=== PATIENT | male | born 1955 | race Caucasian/White ===

== ENCOUNTER → 2021-04-14 | Outpatient (CLI) | payer MEDICARE ==
[~2021-04-14] MED LIST: ALTA1CAP2 PO; ASPI-255 PO; ASPI-527 PO; ASPI81CH49 PO; FARX1TAB3 PO; FENO160T10 PO; FISH1000 PO; FLUO20CA20 PO; GABA-282 PO; GEMF600T5 PO; INVO300T PO; METF850T4 PO; METO-346 PO; METO1TAB32 PO; NITR4TASL SL; NOVOINJ13 SC; OMEP1CAP73 PO; PERC5TAB12 PO; PRAV1TAB39 PO; TOUJ1.2I SC; TYLE325T5 PO; VICT18IN SC
== END ==
LOC: M LABSMTC 09:54
PROVIDERS: ATTEND Anesthesiology
DX: Z01.812 Encounter for preprocedural laboratory examination (principal); Z20.822 Contact with and (suspected) exposure to COVID-19

== ENCOUNTER 2021-04-19 06:39 | Day surgery (SDC) | payer MEDICARE ==
[~2021-04-19] VITALS: Ht 175.3 cm; Wt 97.1 kg
[2021-04-19] MEDS ORDERED: LIDOCAINE 2% 100MG/5ML SDV (FOR ANES.) As Ordered ONE (07:04)
[2021-04-19] MEDS ORDERED: propofoL 200 MG/20 ML VIAL As Ordered ONE (07:04)
[2021-04-19] MEDS ORDERED: NS 1,000 ML IV ONE (07:30)
--- NOTE | 2021-04-19 09:16 | ROOR ---
Patient Name: Tai Hartman Procedure Date: 04/19/2021 8:57 AM Date of : 1955 Age: 65 Room: [facility] Gender: Male Note Status: Finalized Procedure: Colonoscopy Indications: High risk colon cancer surveillance: Personal history of colonic polyps Providers: Cruz Ambrose MD Referring MD: BETINA MORENO MD Requesting Provider: Medicines: Monitored Anesthesia Care Complications: No immediate complications. Procedure: Pre-Anesthesia Assessment: - The heart rate, respiratory rate, oxygen saturations, blood pressure, adequacy of pulmonary ventilation, and response to care were monitored throughout the procedure. The Colonoscope was introduced through the anus and advanced to the terminal ileum, with identification of the appendiceal orifice and IC valve. The colonoscopy was performed without difficulty. The patient tolerated the procedure well. The quality of the bowel preparation was poor. Findings: The perianal and digital rectal examinations were normal. Four sessile polyps were found in the sigmoid colon and descending colon. The polyps were 4 to 6 mm in size. These polyps were removed with a cold snare. Resection and retrieval were complete. The exam was otherwise without abnormality. Impression: - Preparation of the colon was poor. - Four 4 to 6 mm polyps in the sigmoid colon and in the descending colon, removed with a cold snare. Resected and retrieved. - The examination was otherwise normal. Recommendation: - Repeat colonoscopy in 1 year because the bowel preparation was poor. Procedure Code(s): --- Professional --- 42339, Colonoscopy, flexible; with removal of tumor(s), polyp(s), or other lesion(s) by snare technique Diagnosis Code(s): --- Professional --- Z86.010, Personal history of colonic polyps K63.5, Polyp of colon CPT copyright 2019 [employer]. All rights reserved. The codes documented in this report are preliminary and upon reports developer review may be revised to meet current compliance requirements. Cruz Ambrose MD Cruz Ambrose MD 04/19/2021 9:15:37 AM Electronically signed by Cruz Ambrose MD Number of Addenda: 0 Note Initiated On: 04/19/2021 8:57 AM Estimated Blood Loss: Estimated blood loss: none.
[2021-04-19 09:35] VITALS: BP 146/68
== END 2021-04-19 09:45 | disposition home or self-care (01) ==
LOC: M OPP 06:39
PROVIDERS: ATTEND Internal Medicine Gastroenterology
DX: Z12.11 Encounter for screening for malignant neoplasm of colon (principal); Z86.010 Personal history of colon polyps; Z80.0 Family history of malignant neoplasm of digestive organs; K63.5 Polyp of colon; Z79.4 Long term (current) use of insulin; Z79.82 Long term (current) use of aspirin; Z79.899 Other long term (current) drug therapy; Z87.891 Personal history of nicotine dependence

== ENCOUNTER → 2021-04-20 | Outpatient (CLI) | payer MEDICARE ==
--- NOTE | 2021-04-20 08:37 | REP ---
INDICATION: SPLENOMAGLY. COMPARISON: None. TECHNIQUE: Real-time sonographic evaluation of the left upper quadrant with Doppler assess spleen FINDINGS: The spleen measures 17.3 x 6.8 x 17.8 cm. The volumetric index calculation is 2094. There is no free fluid. Two small cysts are seen in the spleen. IMPRESSION: Splenomegaly <Electronically signed by David Hidalgo > 04/20/21 0822
== END ==
LOC: M RAD 07:39
PROVIDERS: ATTEND Specialist
DX: R16.1 Splenomegaly, not elsewhere classified (principal)

== ENCOUNTER → 2021-05-13 | Outpatient (CLI) | payer MEDICARE ==
[~2021-05-13] MED LIST changes: +FLUO-96 PO; -FLUO20CA20 PO; +GASTROGRAFIN SOLUTION 30ML (Q9963) As Ordered ONE; +ISOVUE-370 76% 100ML VIAL As Ordered ONE
== END ==
LOC: M RAD 09:06
PROVIDERS: ATTEND Specialist
DX: R91.8 Other nonspecific abnormal finding of lung field (principal); D61.818 Other pancytopenia; R16.1 Splenomegaly, not elsewhere classified; N28.1 Cyst of kidney, acquired
CPT/HCPCS: 71260; 74177; Q9963; Q9967

== ENCOUNTER → 2021-07-19 | Outpatient (CLI) | payer MEDICARE ==
[~2021-07-19] MED LIST changes: -GASTROGRAFIN SOLUTION 30ML (Q9963) As Ordered ONE; -ISOVUE-370 76% 100ML VIAL As Ordered ONE
[2021-07-19 12:59] LABS: HEMATOCRIT 39.8 % (42.0-52.0); HEMOGLOBIN 12.6 g/dl (13.5-17.5); MEAN CORPUSCULAR HEMOGLOBIN 28.6 pg (27.0-33.0); MEAN CORPUSCULAR HGB CONC 31.7 g/dl (32.0-36.5); MEAN CORPUSCULAR VOLUME 90.5 fl (80.0-96.0); PLATELET COUNT, AUTOMATED 97 10^3/uL (150-450); WHITE BLOOD COUNT 2.3 10^3/uL (4.0-10.0)
[2021-07-19 13:09] LABS: INR 1.2; PROTHROMBIN TIME 15.6 SECONDS (12.7-14.5)
[2021-07-19 13:10] LABS: PARTIAL THROMBOPLASTIN TIME 34.1 SECONDS (25.9-37.0)
[2021-07-19 13:43] LABS: ALBUMIN 3.7 GM/DL (3.2-5.2); ALT/SGPT 50 U/L (12-78); BILIRUBIN,DIRECT 0.2 MG/DL (0.0-0.2); BILIRUBIN,TOTAL 0.7 MG/DL (0.2-1.0); IRON (FE) 87 UG/DL (65-175); TOTAL IRON BINDING CAPACITY 457 UG/DL (250-450); TOTAL PROTEIN 7.1 GM/DL (6.4-8.2)
[2021-07-19 13:45] LABS: HEPATITIS B SURFACE ANTIGEN NEGATIVE (NEGATIVE)
[2021-07-19 14:13] LABS: HEPATITIS B CORE ANTIBODY IGM NEGATIVE (NEGATIVE)
[2021-07-19 17:48] LABS: HEPATITIS C VIRUS ABY INDEX 0.2 INDEX (<0.8)
[2021-07-21 16:10] LABS: ANCA-ATYPICAL <1:20 titer (Neg:<1:20); ANTI-MITOCHONDRIAL ANTIBODY <20.0 Units (0.0-20.0); CERULOPLASMIN 19.3 mg/dL (16.0-31.0); CYTOPLASMIC NEUTROP AB ANCA-C <1:20 titer (Neg:<1:20); LIVER-KIDNEY MICROSOMAL ABY <20.1 Units (0.0-20.0); PERINUCLEAR AB ANCA-P <1:20 titer (Neg:<1:20)
== END ==
LOC: M LAB 10:31
PROVIDERS: ATTEND Physician Assistant Medical
DX: R93.3 Abnormal findings on diagnostic imaging of other parts of digestive tract (principal); R94.5 Abnormal results of liver function studies; Z79.899 Other long term (current) drug therapy; Z79.82 Long term (current) use of aspirin; E11.9 Type 2 diabetes mellitus without complications; Z79.4 Long term (current) use of insulin; Z79.84 Long term (current) use of oral hypoglycemic drugs

== ENCOUNTER 2021-08-04 06:21 | Day surgery (SDC) | payer MEDICARE ==
[~2021-08-04] VITALS: Ht 175.3 cm; Wt 97.5 kg
[~2021-08-04 06:21] MED LIST changes: +ECOT81TA5 PO; +FLUO40CA; +GABA600T4; +LANTINJ4 SQ; +METO1TAB87; +MULT-90 PO; +NS 1,000 ML IV ONE; +OMEP-173; +RAMI1CAP22
[2021-08-04] MEDS ORDERED: SIMETHICONE 40MG/0.6ML DROPS 30ML As Ordered ONE (06:39)
[2021-08-04] MEDS ORDERED: propofoL 200 MG/20 ML VIAL As Ordered ONE (07:13)
[2021-08-04] MEDS ORDERED: LIDOCAINE 2% 100MG/5ML SDV (FOR ANES.) As Ordered ONE (07:13)
[2021-08-04 08:46] VITALS: BP 127/61
== END 2021-08-04 08:50 | disposition home or self-care (01) ==
LOC: M OPP 06:21
PROVIDERS: ATTEND Internal Medicine Gastroenterology
DX: K31.7 Polyp of stomach and duodenum (principal); I86.4 Gastric varices; I85.10 Secondary esophageal varices without bleeding; K29.50 Unspecified chronic gastritis without bleeding; K76.6 Portal hypertension; R93.3 Abnormal findings on diagnostic imaging of other parts of digestive tract; I25.83 Coronary atherosclerosis due to lipid rich plaque; E11.9 Type 2 diabetes mellitus without complications; Z79.4 Long term (current) use of insulin; Z79.82 Long term (current) use of aspirin; Z79.899 Other long term (current) drug therapy; Z88.0 Allergy status to penicillin; Z95.5 Presence of coronary angioplasty implant and graft; Z86.74 Personal history of sudden cardiac arrest; Z87.891 Personal history of nicotine dependence

== ENCOUNTER → 2021-08-12 | Outpatient (CLI) | payer MEDICARE ==
[~2021-08-12] MED LIST changes: -NS 1,000 ML IV ONE
== END ==
LOC: M RAD 07:22
PROVIDERS: ATTEND Physician Assistant Medical
DX: R93.3 Abnormal findings on diagnostic imaging of other parts of digestive tract (principal); R94.5 Abnormal results of liver function studies; R16.0 Hepatomegaly, not elsewhere classified

== ENCOUNTER → 2021-11-24 | Outpatient (REF) | payer MEDICARE ==
[2021-11-24 12:19] LABS: APPEARANCE, URINE MANUAL CLEAR (CLEAR)
[2021-11-24 12:20] LABS: BILIRUBIN, URINE MANUAL NEGATIVE (NEGATIVE); BLOOD URINE MANUAL NEGATIVE (NEGATIVE); COLOR, URINE MANUAL YELLOW (YELLOW); GLUCOSE, URINE (UA) MANUAL NEGATIVE (NEGATIVE); KETONE, URINE MANUAL NEGATIVE (NEGATIVE); LEUKOCYTE ESTERASE, URINE MAN NEGATIVE (NEGATIVE); NITRITE, URINE MANUAL NEGATIVE (NEGATIVE); PROTEIN, URINE MANUAL NEGATIVE (NEGATIVE); SPECIFIC GRAVITY,URINE MANUAL 1.005 (1.002-1.035); UROBILINOGEN, URINE MANUAL NORMAL (NORMAL)
[2021-11-24 12:24] LABS: EOS # 0.1 10^3/uL (0.0-0.5); EOS % 1.7 % (0.0-3.0); HEMATOCRIT 42.7 % (42.0-52.0); HEMOGLOBIN 13.8 g/dl (13.5-17.5); LYMPH # 0.8 10^3/uL (1.5-5.0); LYMPH % 26.1 % (24.0-44.0); MEAN CORPUSCULAR HEMOGLOBIN 30.3 pg (27.0-33.0); MEAN CORPUSCULAR HGB CONC 32.3 g/dl (32.0-36.5); MEAN CORPUSCULAR VOLUME 93.8 fl (80.0-96.0); MONO # 0.3 10^3/uL (0.0-0.8); MONO % 9.4 % (2.0-8.0); NEUTROPHILS # 1.8 10^3/uL (1.5-8.5); NEUTROPHILS % 61.1 % (36.0-66.0); RED BLOOD COUNT 4.55 10^6/uL (4.30-6.10)
[2021-11-24 12:36] LABS: PLATELET COUNT, AUTOMATED 75 10^3/uL (150-450)
[2021-11-24 12:53] LABS: CREATININE,RANDOM URINE 70.5 MG/DL; TOTAL PROTEIN,RANDOM URINE 7.8 MG/DL (0.0-12.0)
[2021-11-24 17:41] LABS: COMPLEMENT C3 135 MG/DL (90-180); COMPLEMENT C4 18 MG/DL (10-40)
== END ==
LOC: M SFHCRHEU 09:40
PROVIDERS: ATTEND Internal Medicine
DX: R76.8 Other specified abnormal immunological findings in serum (principal); D61.818 Other pancytopenia

== ENCOUNTER → 2022-01-20 | Outpatient (CLI) | payer MEDICARE ==
[~2022-01-20] MED LIST changes: +ISOVUE-370 76% 100ML VIAL As Ordered ONE
== END ==
LOC: M RAD 10:52
PROVIDERS: ATTEND Specialist
DX: R91.1 Solitary pulmonary nodule (principal)
CPT/HCPCS: 71260; Q9967

== ENCOUNTER → 2022-02-14 | Outpatient (CLI) | payer MEDICARE ==
[~2022-02-14] MED LIST changes: -ISOVUE-370 76% 100ML VIAL As Ordered ONE
== END ==
LOC: M RAD 06:10
PROVIDERS: ATTEND Physician Assistant Medical
DX: K74.60 Unspecified cirrhosis of liver (principal); R16.2 Hepatomegaly with splenomegaly, not elsewhere classified

== ENCOUNTER → 2022-02-20 | Outpatient (CLI) | payer MEDICARE | LOC: M PLARAD 08:22 | PROVIDERS: ATTEND Internal Medicine Medical Oncology | DX: R91.8 Other nonspecific abnormal finding of lung field (principal) | CPT/HCPCS: 78815; A9552 ==

== ENCOUNTER → 2022-04-04 | Outpatient (CLI) | payer MEDICARE | LOC: M WUC 13:22 | PROVIDERS: ATTEND Internal Medicine | DX: D61.818 Other pancytopenia (principal); Z79.899 Other long term (current) drug therapy ==

== ENCOUNTER → 2022-04-04 | Outpatient (CLI) | payer MEDICARE ==
[2022-04-04 17:19] LABS: BASO % 0.7 % (0.0-1.0); EOS % 1.4 % (0.0-3.0); HEMATOCRIT 42.3 % (42.0-52.0); HEMOGLOBIN 13.4 g/dl (13.5-17.5); LYMPH # 0.9 10^3/uL (1.5-5.0); MEAN CORPUSCULAR HGB CONC 31.7 g/dl (32.0-36.5); MEAN CORPUSCULAR VOLUME 94.8 fl (80.0-96.0); MONO # 0.2 10^3/uL (0.0-0.8); MONO % 7.5 % (2.0-8.0); NEUTROPHILS # 1.7 10^3/uL (1.5-8.5); RED BLOOD COUNT 4.46 10^6/uL (4.30-6.10); WHITE BLOOD COUNT 2.8 10^3/uL (4.0-10.0)
[2022-04-04 17:20] LABS: PLATELET COUNT, AUTOMATED 84 10^3/uL (150-450)
[2022-04-04 17:30] LABS: ALBUMIN 3.8 G/DL (3.2-5.2); ALKALINE PHOSPHATASE 64 U/L (46-116); ALT/SGPT 30 U/L (7.0-40); AST/SGOT 32 U/L (<34); BLOOD UREA NITROGEN 22 MG/DL (9-23); CALCIUM LEVEL 8.9 MG/DL (8.3-10.6); CARBON DIOXIDE LEVEL 29 MMOL/L (20-31); CHLORIDE LEVEL 105 MMOL/L (98-107); CHOLESTEROL LEVEL 134 MG/DL (<200); CHOLESTEROL RISK RATIO 4.11 (<5); CREATININE FOR GFR 1.03 MG/DL (0.70-1.30); GLOMERULAR FILTRATION RATE > 60.0 (>49); GLUCOSE, FASTING 229 MG/DL (74-106); HDL CHOLESTEROL 32.6 MG/DL (>40); LDL CHOLESTEROL 72.4 MG/DL (<100); NON-HDL-C 101 MG/DL; POTASSIUM SERUM 4.5 MMOL/L (3.5-5.1); SODIUM LEVEL 142 MMOL/L (136-145); TOTAL PROTEIN 6.9 G/DL (5.7-8.2); TRIGLYCERIDES LEVEL 145 MG/DL (<150)
[2022-04-04 17:41] LABS: HEMOGLOBIN A1c 8.2 % (4.0-6.0)
== END ==
LOC: M WUC 13:26
PROVIDERS: ATTEND Internal Medicine
DX: E11.42 Type 2 diabetes mellitus with diabetic polyneuropathy (principal); I10 Essential (primary) hypertension; E78.2 Mixed hyperlipidemia; Z79.899 Other long term (current) drug therapy

== ENCOUNTER → 2022-04-11 | Outpatient (CLI) | payer MEDICARE | LOC: M CARPUL 13:07 | PROVIDERS: ATTEND Internal Medicine Pulmonary Disease | DX: R91.8 Other nonspecific abnormal finding of lung field (principal) ==

== ENCOUNTER → 2022-06-12 | Outpatient (CLI) | payer MEDICARE ==
[~2022-06-12] MED LIST changes: +CHOL125C5 PO; -FLUO40CA; +FLUO40CA PO; -GABA600T4; +GABA600T4 PO; -METO1TAB87; +METO1TAB87 PO; -OMEP-173; +OMEP-173 PO; -RAMI1CAP22; +RAMI1CAP22 PO; +[UNRECOGNIZED DRUG - CODE] PO
== END ==
LOC: M WUC 15:57
PROVIDERS: ATTEND Physician Assistant Medical
DX: K74.60 Unspecified cirrhosis of liver (principal)

== ENCOUNTER → 2022-06-14 | Outpatient (CLI) | payer MEDICARE | LOC: M LABSMTC 10:56 | PROVIDERS: ATTEND Anesthesiology | DX: Z01.812 Encounter for preprocedural laboratory examination (principal); Z20.822 Contact with and (suspected) exposure to COVID-19 ==

== ENCOUNTER → 2022-06-16 | Outpatient (CLI) | payer MEDICARE ==
[~2022-06-16] MED LIST changes: +CARV3.12 PO
== END ==
LOC: M RAD 06:57
PROVIDERS: ATTEND Internal Medicine Pulmonary Disease
DX: R91.8 Other nonspecific abnormal finding of lung field (principal)

== ENCOUNTER 2022-06-19 06:08 | Day surgery (SDC) | payer MEDICARE ==
[~2022-06-19] VITALS: Ht 175.3 cm; Wt 91.2 kg
[~2022-06-19 06:08] MED LIST changes: -CARV3.12 PO; +NS 1,000 ML IV ONE
[2022-06-19] MEDS ORDERED: propofoL 200 MG/20 ML VIAL As Ordered ONE ×2 (06:54→07:46)
[2022-06-19] MEDS ORDERED: LIDOCAINE 2% 100MG/5ML SDV (FOR ANES.) As Ordered ONE (06:55)
[2022-06-19] MEDS ORDERED: CARV3.12 PO (07:12)
[2022-06-19] MEDS ORDERED: fentaNYL 100 MCG/2 ML INJECTION As Ordered ONE (07:16)
[2022-06-19 08:45] VITALS: BP 134/67
== END 2022-06-19 08:49 | disposition home or self-care (01) ==
LOC: M OPP 06:08
PROVIDERS: ATTEND Internal Medicine Gastroenterology
DX: Z12.11 Encounter for screening for malignant neoplasm of colon (principal); Z86.010 Personal history of colon polyps; Z80.0 Family history of malignant neoplasm of digestive organs; K64.8 Other hemorrhoids; D12.0 Benign neoplasm of cecum; D12.2 Benign neoplasm of ascending colon; D12.5 Benign neoplasm of sigmoid colon; D12.4 Benign neoplasm of descending colon; K31.7 Polyp of stomach and duodenum; I86.4 Gastric varices; K74.60 Unspecified cirrhosis of liver; I85.10 Secondary esophageal varices without bleeding; E11.9 Type 2 diabetes mellitus without complications; I25.10 Atherosclerotic heart disease of native coronary artery without angina pectoris; Z79.4 Long term (current) use of insulin; Z79.82 Long term (current) use of aspirin; Z79.891 Long term (current) use of opiate analgesic; Z79.899 Other long term (current) drug therapy; Z95.5 Presence of coronary angioplasty implant and graft; Z87.891 Personal history of nicotine dependence; Z80.7 Family history of other malignant neoplasms of lymphoid, hematopoietic and related tissues
CPT/HCPCS: 43251; 45385; 88305; J3010

== ENCOUNTER 2022-06-22 13:54 | Emergency (ER) | payer MEDICARE ==
[~2022-06-22] VITALS: Ht 175.3 cm; Wt 91.8 kg
[~2022-06-22 13:54] MED LIST changes: +CARV3.12 PO; -NS 1,000 ML IV ONE
[2022-06-22] MEDS ORDERED: SUCR1TAB56 (14:07)
[2022-06-22 16:04] LABS: BASO % 0.8 % (0.0-1.0); EOS # 0.1 10^3/uL (0.0-0.5); EOS % 2.4 % (0.0-3.0); HEMATOCRIT 38.1 % (42.0-52.0); HEMOGLOBIN 12.5 g/dl (13.5-17.5); LYMPH # 1.1 10^3/uL (1.5-5.0); LYMPH % 21.1 % (24.0-44.0); MEAN CORPUSCULAR HEMOGLOBIN 30.6 pg (27.0-33.0); MEAN CORPUSCULAR HGB CONC 32.8 g/dl (32.0-36.5); MEAN CORPUSCULAR VOLUME 93.4 fl (80.0-96.0); MONO # 0.4 10^3/uL (0.0-0.8); MONO % 8.3 % (2.0-8.0); NEUTROPHILS # 3.4 10^3/uL (1.5-8.5); PLATELET COUNT, AUTOMATED 101 10^3/uL (150-450); RED BLOOD COUNT 4.08 10^6/uL (4.30-6.10); WHITE BLOOD COUNT 5.1 10^3/uL (4.0-10.0)
[2022-06-22 16:38] LABS: ALBUMIN 3.6 G/DL (3.2-5.2); BILIRUBIN,TOTAL 0.9 MG/DL (0.3-1.2); CALCIUM LEVEL 9.6 MG/DL (8.3-10.6); CREATININE FOR GFR 1.27 MG/DL (0.70-1.30); POTASSIUM SERUM 4.5 MMOL/L (3.5-5.1); TOTAL PROTEIN 6.7 G/DL (5.7-8.2)
[2022-06-22 16:48] VITALS: BP 118/62
== END 2022-06-22 18:35 | disposition home or self-care (01) ==
LOC: M ED 13:54
DX: K92.1 Melena (principal); I10 Essential (primary) hypertension; I25.2 Old myocardial infarction; E78.5 Hyperlipidemia, unspecified; E11.9 Type 2 diabetes mellitus without complications; Z79.82 Long term (current) use of aspirin; Z79.4 Long term (current) use of insulin; Z79.810 Long term (current) use of selective estrogen receptor modulators (SERMs); Z79.811 Long term (current) use of aromatase inhibitors; Z79.899 Other long term (current) drug therapy

== ENCOUNTER → 2022-06-23 | Outpatient (CLI) | payer MEDICARE ==
[~2022-06-23] MED LIST changes: +SUCR1TAB56
== END ==
LOC: M LABSMTC 08:06
PROVIDERS: ATTEND Anesthesiology
DX: Z01.812 Encounter for preprocedural laboratory examination (principal); Z20.822 Contact with and (suspected) exposure to COVID-19

== ENCOUNTER → 2022-06-23 | Outpatient (CLI) | payer MEDICARE ==
[2022-06-23 10:34] LABS: PLATELET COUNT, AUTOMATED 77 10^3/uL (150-450)
[2022-06-23 10:42] LABS: INR 1.31; PROTHROMBIN TIME 16.5 SECONDS (12.5-14.5)
[2022-06-23 10:43] LABS: PARTIAL THROMBOPLASTIN TIME 31.6 SECONDS (24.8-34.2)
== END ==
LOC: M PLALAB 08:51
DX: Z01.812 Encounter for preprocedural laboratory examination (principal); Z20.822 Contact with and (suspected) exposure to COVID-19; Z79.899 Other long term (current) drug therapy

== ENCOUNTER 2022-06-28 06:02 | Day surgery (SDC) | payer MEDICARE ==
[~2022-06-28] VITALS: Ht 175.3 cm; Wt 91.2 kg
[~2022-06-28 06:02] MED LIST changes: +ALBUTEROL SULFATE 2.5MG/0.5ML INH NEB SOLN INH ONE; +LIDOCAINE PRES-FREE 2% 10ML AMP INH ONE
[2022-06-28] MEDS ORDERED: LR 1,000 ML IV SCH (06:15)
[2022-06-28] MEDS ORDERED: SUGAMMADEX SODIUM 500 MG/5 ML VIAL (BRIDION) As Ordered ONE (07:01)
[2022-06-28] MEDS ORDERED: ONDANSETRON 4MG 2ML VIAL As Ordered ONE (07:01)
[2022-06-28] MEDS ORDERED: ROCURONIUM BROMIDE 50MG/5ML VIAL As Ordered ONE ×2 (07:01→08:25)
[2022-06-28] MEDS ORDERED: LIDOCAINE 2% 100MG/5ML SDV (FOR ANES.) As Ordered ONE (07:01)
[2022-06-28] MEDS ORDERED: propofoL 200 MG/20 ML VIAL As Ordered ONE (07:01)
[2022-06-28] MEDS ORDERED: MIDAZOLAM INJ 2MG/2ML VIAL As Ordered ONE (07:06)
[2022-06-28] MEDS ORDERED: fentaNYL 100 MCG/2 ML INJECTION As Ordered ONE (07:06)
[2022-06-28] MEDS ORDERED: LIDOCAINE PRES-FREE 2% 10ML AMP As Ordered ONE (07:08)
[2022-06-28] MEDS ORDERED: EPINEPHrine 1MG/10ML SYRINGE 1.5IN As Ordered ONE (07:16)
[2022-06-28] MEDS ORDERED: THROMBIN 5,000 UNITS VIAL As Ordered ONE (07:16)
[2022-06-28] MEDS ORDERED: CETACAINE SPRAY 5GM As Ordered ONE (07:16)
[2022-06-28] MEDS ORDERED: ACETAMINOPHEN 1000MG 100ML IV BAG As Ordered ONE (07:55)
[2022-06-28] MEDS ORDERED: ePHEDrine SULFATE 25 MG/5 ML(5MG/ML) SYRINGE As Ordered ONE (08:08)
[2022-06-28] MEDS ORDERED: ONDANSETRON 4MG 2ML VIAL IV PRN (08:55)
[2022-06-28] MEDS ORDERED: oxyCODONE 5MG TAB PO PRN (08:55)
[2022-06-28] MEDS ORDERED: MORPHINE 2 MG/ML 1ML VIAL IV PRN (08:55)
[2022-06-28] MEDS ORDERED: fentaNYL 100 MCG/2 ML INJECTION IV PRN (08:55)
[2022-06-28 10:34] VITALS: BP 151/69
== END 2022-06-28 10:48 | disposition home or self-care (01) ==
LOC: M SDC 06:02
PROVIDERS: ATTEND Internal Medicine Pulmonary Disease
DX: R91.8 Other nonspecific abnormal finding of lung field (principal); E11.40 Type 2 diabetes mellitus with diabetic neuropathy, unspecified; I10 Essential (primary) hypertension; I25.10 Atherosclerotic heart disease of native coronary artery without angina pectoris; Z95.5 Presence of coronary angioplasty implant and graft; K21.9 Gastro-esophageal reflux disease without esophagitis; K74.60 Unspecified cirrhosis of liver; D73.1 Hypersplenism; D61.818 Other pancytopenia; Z87.891 Personal history of nicotine dependence; F41.9 Anxiety disorder, unspecified; Z79.899 Other long term (current) drug therapy; Z79.82 Long term (current) use of aspirin; Z79.84 Long term (current) use of oral hypoglycemic drugs
CPT/HCPCS: 31624; 31627; 31628; 31629; 31654; 71045; 76000; 88108; 88173; 88305; 88313; J0131; J0171; J1100; J2250; J2405; J3010

== ENCOUNTER → 2022-07-12 | Outpatient (CLI) | payer MEDICARE ==
[~2022-07-12] MED LIST changes: -ALBUTEROL SULFATE 2.5MG/0.5ML INH NEB SOLN INH ONE; -LIDOCAINE PRES-FREE 2% 10ML AMP INH ONE
[2022-07-12 14:08] LABS: HEMATOCRIT 35.5 % (42.0-52.0); HEMOGLOBIN 11.3 g/dl (13.5-17.5); MEAN CORPUSCULAR HEMOGLOBIN 29.2 pg (27.0-33.0); MEAN CORPUSCULAR HGB CONC 31.8 g/dl (32.0-36.5); MEAN CORPUSCULAR VOLUME 91.7 fl (80.0-96.0); RED BLOOD COUNT 3.87 10^6/uL (4.30-6.10); WHITE BLOOD COUNT 2.1 10^3/uL (4.0-10.0)
[2022-07-12 14:12] LABS: PLATELET COUNT, AUTOMATED 81 10^3/uL (150-450)
== END ==
LOC: M LAB 13:24
PROVIDERS: ATTEND Physician Assistant Medical
DX: K92.1 Melena (principal); K74.60 Unspecified cirrhosis of liver

== ENCOUNTER → 2022-07-19 | Outpatient (CLI) | payer MEDICARE ==
[~2022-07-19] MED LIST changes: +INSULADS INJ
== END ==
LOC: M ONCR 08:36
PROVIDERS: ATTEND General Practice
DX: C34.11 Malignant neoplasm of upper lobe, right bronchus or lung (principal); K74.60 Unspecified cirrhosis of liver; R16.1 Splenomegaly, not elsewhere classified; E78.2 Mixed hyperlipidemia; E11.9 Type 2 diabetes mellitus without complications; I25.10 Atherosclerotic heart disease of native coronary artery without angina pectoris; I25.2 Old myocardial infarction; Z95.5 Presence of coronary angioplasty implant and graft; Z79.4 Long term (current) use of insulin; Z79.811 Long term (current) use of aromatase inhibitors; Z79.82 Long term (current) use of aspirin; Z79.84 Long term (current) use of oral hypoglycemic drugs; Z79.899 Other long term (current) drug therapy; Z80.9 Family history of malignant neoplasm, unspecified; Z87.891 Personal history of nicotine dependence

== ENCOUNTER → 2022-08-01 | Outpatient (CLI) | payer MEDICARE ==
[2022-08-01 14:38] LABS: BASO % 0.7 % (0.0-1.0); EOS # 0.1 10^3/uL (0.0-0.5); EOS % 3.5 % (0.0-3.0); HEMATOCRIT 35.5 % (42.0-52.0); HEMOGLOBIN 11.4 g/dl (13.5-17.5); LYMPH # 0.5 10^3/uL (1.5-5.0); LYMPH % 34.7 % (24.0-44.0); MEAN CORPUSCULAR HEMOGLOBIN 29.5 pg (27.0-33.0); MEAN CORPUSCULAR HGB CONC 32.1 g/dl (32.0-36.5); MONO # 0.2 10^3/uL (0.0-0.8); MONO % 11.1 % (2.0-8.0); NEUTROPHILS % 48.6 % (36.0-66.0); RED BLOOD COUNT 3.86 10^6/uL (4.30-6.10); WHITE BLOOD COUNT 1.4 10^3/uL (4.0-10.0)
[2022-08-01 15:06] LABS: ALBUMIN 3.7 G/DL (3.2-5.2); ALKALINE PHOSPHATASE 54 U/L (46-116); ALT/SGPT 24 U/L (7.0-40); AST/SGOT 26 U/L (<34); BILIRUBIN,TOTAL 0.6 MG/DL (0.3-1.2); BLOOD UREA NITROGEN 18 MG/DL (9-23); CARBON DIOXIDE LEVEL 28 MMOL/L (20-31); CHLORIDE LEVEL 108 MMOL/L (98-107); CHOLESTEROL LEVEL 128 MG/DL (<200); CHOLESTEROL RISK RATIO 4.06 (<5); CREATININE FOR GFR 0.86 MG/DL (0.70-1.30); GLOMERULAR FILTRATION RATE > 60.0 (>49); GLUCOSE, FASTING 115 MG/DL (74-106); HDL CHOLESTEROL 31.5 MG/DL (>40); LDL CHOLESTEROL 68.5 MG/DL (<100); NON-HDL-C 96.5 MG/DL; POTASSIUM SERUM 3.8 MMOL/L (3.5-5.1); SODIUM LEVEL 143 MMOL/L (136-145); TOTAL PROTEIN 6.7 G/DL (5.7-8.2); TRIGLYCERIDES LEVEL 140 MG/DL (<150)
[2022-08-01 15:23] LABS: NEUTROPHILS # 0.7 10^3/uL (1.5-8.5); PLATELET COUNT, AUTOMATED 75 10^3/uL (150-450)
[2022-08-01 15:40] LABS: HEMOGLOBIN A1c 7.6 % (4.0-6.0)
== END ==
LOC: M WUC 09:27
PROVIDERS: ATTEND Internal Medicine
DX: E11.42 Type 2 diabetes mellitus with diabetic polyneuropathy (principal); E78.2 Mixed hyperlipidemia; I10 Essential (primary) hypertension

== ENCOUNTER → 2022-08-08 | Outpatient (CLI) | payer MEDICARE | LOC: M RAD 06:49 | PROVIDERS: ATTEND Physician Assistant Medical | DX: K74.60 Unspecified cirrhosis of liver (principal); R16.2 Hepatomegaly with splenomegaly, not elsewhere classified; K76.6 Portal hypertension ==

== ENCOUNTER 2022-08-11 13:41 | Outpatient (RCR) | payer MEDICARE | END 2022-08-13 | LOC: M ONCR 13:41 | PROVIDERS: ATTEND General Practice | DX: C34.11 Malignant neoplasm of upper lobe, right bronchus or lung (principal) ==

== ENCOUNTER 2022-08-15 13:42 | Outpatient (RCR) | payer MEDICARE | END 2022-09-13 | LOC: M ONCR 13:42 | PROVIDERS: ATTEND General Practice | DX: C34.11 Malignant neoplasm of upper lobe, right bronchus or lung (principal) ==

== ENCOUNTER → 2022-09-14 | Outpatient (CLI) | payer MEDICARE | LOC: M WUC 10:22 | PROVIDERS: ATTEND Physician Assistant | DX: S20.212A Contusion of left front wall of thorax, initial encounter (principal) ==

== ENCOUNTER → 2022-10-05 | Outpatient (CLI) | payer MEDICARE | LOC: M SOG 09:31 | PROVIDERS: ATTEND Orthopaedic Surgery | DX: M54.50 Low back pain, unspecified (principal); R10.2 Pelvic and perineal pain; M79.605 Pain in left leg ==

== ENCOUNTER 2022-11-07 22:08 | Emergency (ER) | payer MEDICARE ==
[~2022-11-07] VITALS: Ht 172.7 cm; Wt 84.1 kg
[~2022-11-07 22:08] MED LIST changes: +HYDR-3713 PO
[2022-11-08] MEDS ORDERED: MIRA3350 PO (07:29)
[2022-11-08] MEDS ORDERED: PERC5TAB12 PO (07:29)
[2022-11-08] MEDS ORDERED: PERCOCET 5MG/325MG TAB PO ONE (07:30)
[2022-11-08 07:43] VITALS: BP 163/74; TEMP 97; O2SAT 96
== END 2022-11-08 07:50 | disposition home or self-care (01) ==
LOC: M ED 22:08
DX: R10.9 Unspecified abdominal pain (principal); M54.50 Low back pain, unspecified; K21.9 Gastro-esophageal reflux disease without esophagitis; Z86.79 Personal history of other diseases of the circulatory system; Z79.82 Long term (current) use of aspirin; Z79.891 Long term (current) use of opiate analgesic; Z79.899 Other long term (current) drug therapy

== ENCOUNTER → 2022-11-08 | Outpatient (CLI) | payer MEDICARE ==
[~2022-11-08] MED LIST changes: +MIRA3350 PO
[2022-11-08 17:50] LABS: ALBUMIN 3.3 G/DL (3.2-5.2); ALKALINE PHOSPHATASE 100 U/L (46-116); ALT/SGPT 13 U/L (7.0-40); AST/SGOT 19 U/L (<34); BILIRUBIN,TOTAL 1.4 MG/DL (0.3-1.2); BLOOD UREA NITROGEN 18 MG/DL (9-23); CALCIUM LEVEL 9.2 MG/DL (8.3-10.6); CARBON DIOXIDE LEVEL 25 MMOL/L (20-31); CHLORIDE LEVEL 102 MMOL/L (98-107); CHOLESTEROL LEVEL 128 MG/DL (<200); CHOLESTEROL RISK RATIO 4.84 (<5); CREATININE FOR GFR 0.63 MG/DL (0.70-1.30); GLOMERULAR FILTRATION RATE > 60.0 (>49); GLUCOSE, FASTING 174 MG/DL (74-106); HDL CHOLESTEROL 26.4 MG/DL (>40); LDL CHOLESTEROL 70.8 MG/DL (<100); NON-HDL-C 101.6 MG/DL; POTASSIUM SERUM 3.5 MMOL/L (3.5-5.1); SODIUM LEVEL 139 MMOL/L (136-145); TOTAL PROTEIN 6.8 G/DL (5.7-8.2); TRIGLYCERIDES LEVEL 154 MG/DL (<150)
[2022-11-08 19:27] LABS: HEMOGLOBIN A1c 7.5 % (4.0-6.0)
== END ==
LOC: M WUC 14:04
PROVIDERS: ATTEND Internal Medicine
DX: E11.42 Type 2 diabetes mellitus with diabetic polyneuropathy (principal); E78.2 Mixed hyperlipidemia; I10 Essential (primary) hypertension

== ENCOUNTER → 2022-11-15 | Outpatient (CLI) | payer MEDICARE ==
[~2022-11-15] MED LIST changes: +FENT1DIS14 TD; +FENT1DIS14 TOP; +FISH10002 PO; -INSULADS INJ; +INSULADS SC; +MIRA1POW3 PO; +VITMTA PO
== END ==
LOC: M ONCR 13:54
PROVIDERS: ATTEND Radiology Radiation Oncology
DX: C34.11 Malignant neoplasm of upper lobe, right bronchus or lung (principal); J90 Pleural effusion, not elsewhere classified; R18.8 Other ascites; K74.60 Unspecified cirrhosis of liver; R29.6 Repeated falls; Z87.891 Personal history of nicotine dependence; Z71.2 Person consulting for explanation of examination or test findings; Z79.4 Long term (current) use of insulin; Z79.811 Long term (current) use of aromatase inhibitors; Z79.82 Long term (current) use of aspirin; Z79.84 Long term (current) use of oral hypoglycemic drugs; Z79.899 Other long term (current) drug therapy; Z92.3 Personal history of irradiation

== ENCOUNTER → 2022-11-17 | Outpatient (CLI) | payer MEDICARE ==
[2022-11-17 16:33] LABS: PLATELET COUNT, AUTOMATED 178 10^3/uL (150-450)
[2022-11-17 16:48] LABS: INR 1.47; PROTHROMBIN TIME 18.1 SECONDS (12.5-14.5)
[2022-11-17 16:49] LABS: PARTIAL THROMBOPLASTIN TIME 33.1 SECONDS (24.8-34.2)
== END ==
LOC: M WUC 14:46
PROVIDERS: ATTEND Internal Medicine Pulmonary Disease
DX: Z01.812 Encounter for preprocedural laboratory examination (principal); Z79.899 Other long term (current) drug therapy

== ENCOUNTER 2022-11-20 15:22 | Inpatient (IN) | payer MEDICARE ==
[~2022-11-20] VITALS: Ht 175.3 cm; Wt 78.5 kg
[~2022-11-20 15:22] MED LIST changes: -ACET1TAB55 PO; -COLA100C5 PO; -FENT1DIS14 TD; -FISH10002 PO; -MIRA1POW3 PO; -PERCOCET PO; -SENN-188 PO; -VITMTA PO
[2022-11-20] MEDS: MORPHINE 2 MG/ML 1ML VIAL IV PRN ×2 (16:43→17:00)
[2022-11-20 17:07] LABS: BASO % 0.4 % (0.0-1.0); EOS % 0.6 % (0.0-3.0); HEMATOCRIT 34.8 % (42.0-52.0); HEMOGLOBIN 10.9 g/dl (13.5-17.5); LYMPH # 0.8 10^3/uL (1.5-5.0); LYMPH % 16.6 % (24.0-44.0); MEAN CORPUSCULAR HEMOGLOBIN 25.5 pg (27.0-33.0); MEAN CORPUSCULAR HGB CONC 31.3 g/dl (32.0-36.5); MEAN CORPUSCULAR VOLUME 81.3 fl (80.0-96.0); MONO # 0.5 10^3/uL (0.0-0.8); MONO % 10.7 % (2.0-8.0); NEUTROPHILS # 3.4 10^3/uL (1.5-8.5); NEUTROPHILS % 70.9 % (36.0-66.0); PLATELET COUNT, AUTOMATED 155 10^3/uL (150-450); RED BLOOD COUNT 4.28 10^6/uL (4.30-6.10); WHITE BLOOD COUNT 4.8 10^3/uL (4.0-10.0)
[2022-11-20] MEDS ORDERED: MORPHINE 4 MG/ML 1ML VIAL IV ONE (17:20)
[2022-11-20] MEDS ORDERED: FENTANYL REMOVAL DOCUMENTATION MISC XX SCH (17:20)
[2022-11-20] MEDS ORDERED: fentaNYL 25 MCG/HR PATCH TOP ONE (17:20)
[2022-11-20 17:31] LABS: INR 1.47; PROTHROMBIN TIME 18.1 SECONDS (12.5-14.5)
[2022-11-20 17:32] LABS: PARTIAL THROMBOPLASTIN TIME 29.4 SECONDS (24.8-34.2)
[2022-11-20 17:37] LABS: CK-MB VALUE MASS 1.2 NG/ML (<3.6)
[2022-11-20 17:41] LABS: ALBUMIN 2.8 G/DL (3.2-5.2); ALKALINE PHOSPHATASE 137 U/L (46-116); ALT/SGPT 17 U/L (7.0-40); AST/SGOT 23 U/L (<34); BILIRUBIN,DIRECT 0.7 MG/DL (<0.4); BILIRUBIN,TOTAL 1.8 MG/DL (0.3-1.2); BLOOD UREA NITROGEN 21 MG/DL (9-23); CALCIUM LEVEL 9.2 MG/DL (8.3-10.6); CARBON DIOXIDE LEVEL 24 MMOL/L (20-31); CHLORIDE LEVEL 106 MMOL/L (98-107); CPK CREATINE PHOSPHOKINASE 47 U/L (46-171); CREATININE FOR GFR 0.72 MG/DL (0.70-1.30); GLOMERULAR FILTRATION RATE > 60.0 (>49); GLUCOSE, FASTING 124 MG/DL (74-106); MB/CK RELATIVE INDEX 2.55 (< OR =4); POTASSIUM SERUM 3.5 MMOL/L (3.5-5.1); SODIUM LEVEL 141 MMOL/L (136-145); TOTAL PROTEIN 6.2 G/DL (5.7-8.2)
[2022-11-20 17:43] LABS: THYROID STIMULATING HORMONE 2.471 uIU/ML (0.55-4.78)
[2022-11-20 17:52] LABS: RSV AMPLIFICATION NEGATIVE (NEGATIVE)
[2022-11-20 18:44] LABS: CK-MB VALUE MASS < 1.0 NG/ML (<3.6)
[2022-11-20 18:47] LABS: CPK CREATINE PHOSPHOKINASE 45 U/L (46-171); MB/CK RELATIVE INDEX 2.22 (< OR =4)
[2022-11-20] MEDS: HYDROMORPHONE HCL 0.5 MG/ 0.5 ML SYRINGE IV PRN ×2 (20:22→22:37)
[2022-11-20] MEDS ORDERED: ALBUTEROL SULFATE 2.5MG/0.5ML INH NEB SOLN NEB PRN (21:20)
[2022-11-20] MEDS ORDERED: ACETAMINOPHEN TAB 650MG DOSE (2X325MG) PO PRN (21:20)
[2022-11-20] MEDS ORDERED: GLUCOSE 4GM CHEW TABLET PO PRN (21:20)
[2022-11-20] MEDS ORDERED: DEXTROSE 50% 50ML SYRINGE IV PRN (21:20)
[2022-11-20] MEDS ORDERED: GLUCAGON INJ 1MG VIAL SC PRN (21:20)
[2022-11-20] MEDS ORDERED: NS 500 ML IV ONE (21:20)
[2022-11-20] MEDS: NS 1,000 ML IV SCH (21:45)
[2022-11-20] MEDS ORDERED: GABA600T4 PO (23:27)
[2022-11-20] MEDS ORDERED: FLUO40CA PO (23:27)
[2022-11-20] MEDS ORDERED: OMEP-173 PO (23:27)
[2022-11-20] MEDS ORDERED: FENT1DIS14 TD (23:27)
[2022-11-20] MEDS ORDERED: MIRA1POW3 PO (23:27)
[2022-11-20] MEDS ORDERED: VITMTA PO (23:27)
[2022-11-20] MEDS ORDERED: FISH10002 PO (23:27)
[2022-11-20] MEDS ORDERED: RAMI1CAP22 PO (23:27)
[2022-11-20] MEDS ORDERED: HOME MED LIST COMPLETE! XX SCH (23:30)
[2022-11-21] VITALS (8 sets, daily range): BP systolic 124–164; BP diastolic 58–91; TEMP 98.1–99.8; O2SAT 92–95
[2022-11-21] MEDS: HYDROMORPHONE HCL 0.5 MG/ 0.5 ML SYRINGE IV PRN ×3 (03:04→10:42)
[2022-11-21] MEDS: NS 1,000 ML IV SCH ×2 (03:15→17:46)
[2022-11-21 04:43] LABS: HEMATOCRIT 32.1 % (42.0-52.0); HEMOGLOBIN 10.1 g/dl (13.5-17.5)
[2022-11-21] MEDS ORDERED: NS 500 ML IV ONE (04:45)
[2022-11-21 05:04] LABS: BLOOD UREA NITROGEN 21 MG/DL (9-23); CALCIUM LEVEL 8.6 MG/DL (8.3-10.6); CARBON DIOXIDE LEVEL 25 MMOL/L (20-31); CHLORIDE LEVEL 108 MMOL/L (98-107); CREATININE FOR GFR 0.68 MG/DL (0.70-1.30); GLOMERULAR FILTRATION RATE > 60.0 (>49); GLUCOSE, FASTING 140 MG/DL (74-106); POTASSIUM SERUM 3.6 MMOL/L (3.5-5.1); SODIUM LEVEL 143 MMOL/L (136-145)
[2022-11-21] MEDS ORDERED: LACTULOSE 20GM/30ML SYRUP UDC PO PRN (05:05)
[2022-11-21] MEDS: INSULIN LISPRO (NovoLOG) PER UNIT SC SCH ×5 (05:30→21:00)
[2022-11-21] MEDS: rifAXIMin 550 MG TAB (XIFAXAN) PO SCH ×3 (08:01→21:33)
[2022-11-21] MEDS ORDERED: MIDAZOLAM INJ 2MG/2ML VIAL As Ordered ONE (12:38)
[2022-11-21] MEDS ORDERED: fentaNYL 100 MCG/2 ML INJECTION As Ordered ONE ×2 (12:38→14:26)
[2022-11-21] MEDS ORDERED: propofoL 200 MG/20 ML VIAL As Ordered ONE ×2 (12:38→12:40)
[2022-11-21] MEDS ORDERED: LIDOCAINE 2% 100MG/5ML SDV (FOR ANES.) As Ordered ONE (12:38)
[2022-11-21] MEDS ORDERED: SUGAMMADEX SODIUM 500 MG/5 ML VIAL (BRIDION) As Ordered ONE (13:08)
[2022-11-21] MEDS ORDERED: ROCURONIUM BROMIDE 50MG/5ML VIAL As Ordered ONE ×2 (13:08→14:08)
[2022-11-21] MEDS ORDERED: ONDANSETRON 4MG 2ML VIAL As Ordered ONE (13:10)
[2022-11-21] MEDS ORDERED: ceFAZolin 2 GM/D5W 50 ML IV BAG As Ordered ONE (13:26)
[2022-11-21] MEDS ORDERED: TRANEXAMIC ACID 100 MG/ML 10ML VIAL As Ordered ONE (13:34)
[2022-11-21] MEDS ORDERED: HEPARIN SOD (PORCINE) 5000UNITS/ML 1ML VIAL/SYRINGE SC SCH (14:00)
[2022-11-21] MEDS ORDERED: NS 1,000 ML IV SCH (15:05)
[2022-11-21] MEDS ORDERED: METOCLOPRAMIDE INJ 10MG/2ML VIAL IV PRN (15:05)
[2022-11-21] MEDS ORDERED: ONDANSETRON 4MG 2ML VIAL IV PRN (15:05)
[2022-11-21] MEDS ORDERED: HYDROMORPHONE HCL 0.5 MG/ 0.5 ML SYRINGE IV PRN (15:05)
[2022-11-21] MEDS ORDERED: oxyCODONE 5MG TAB PO PRN (15:05)
[2022-11-21] MEDS ORDERED: fentaNYL 100 MCG/2 ML INJECTION IV PRN (15:05)
[2022-11-21] MEDS ORDERED: MIRALAX *UNIT DOSE* 17GM PACKET PO PRN (15:25)
[2022-11-21] MEDS: GABAPENTIN 300 MG CAP PO SCH ×2 (16:00→21:34)
[2022-11-21] MEDS: OMEPRAZOLE 20MG CAP PO SCH (21:33)
[2022-11-21] MEDS: CARVedilol 3.125 MG TAB PO SCH (21:34)
[2022-11-21] MEDS: ceFAZolin SOD 2 GM in IV 1 EA IV SCH (21:35)
[2022-11-22] VITALS (9 sets, daily range): BP systolic 105–133; BP diastolic 53–63; TEMP 98.1–98.5; O2SAT 86–96
[2022-11-22] MEDS: NS 1,000 ML IV SCH (01:06)
[2022-11-22 04:28] LABS: HEMATOCRIT 28.2 % (42.0-52.0); HEMOGLOBIN 8.5 g/dl (13.5-17.5); MEAN CORPUSCULAR HEMOGLOBIN 25.6 pg (27.0-33.0); MEAN CORPUSCULAR HGB CONC 30.1 g/dl (32.0-36.5); MEAN CORPUSCULAR VOLUME 84.9 fl (80.0-96.0); RED BLOOD COUNT 3.32 10^6/uL (4.30-6.10); WHITE BLOOD COUNT 4.7 10^3/uL (4.0-10.0)
[2022-11-22 04:47] LABS: PLATELET COUNT, AUTOMATED 95 10^3/uL (150-450)
[2022-11-22 04:54] LABS: ALBUMIN 2.2 G/DL (3.2-5.2); ALKALINE PHOSPHATASE 142 U/L (46-116); ALT/SGPT 11 U/L (7.0-40); AST/SGOT 25 U/L (<34); BILIRUBIN,TOTAL 0.9 MG/DL (0.3-1.2); BLOOD UREA NITROGEN 20 MG/DL (9-23); CALCIUM LEVEL 8.1 MG/DL (8.3-10.6); CARBON DIOXIDE LEVEL 26 MMOL/L (20-31); CHLORIDE LEVEL 112 MMOL/L (98-107); GLOMERULAR FILTRATION RATE > 60.0 (>49); GLUCOSE, FASTING 157 MG/DL (74-106); SODIUM LEVEL 145 MMOL/L (136-145); TOTAL PROTEIN 5.2 G/DL (5.7-8.2)
[2022-11-22] MEDS: ceFAZolin SOD 2 GM in IV 1 EA IV SCH (05:28)
[2022-11-22] MEDS ORDERED: PERCOCET 5MG/325MG TAB PO PRN (06:50)
[2022-11-22] MEDS: INSULIN LISPRO (NovoLOG) PER UNIT SC SCH ×4 (08:56→21:00)
[2022-11-22] MEDS: FLUoxetine 20MG CAP PO SCH (08:56)
[2022-11-22] MEDS: ramipriL 1.25 MG CAP PO SCH (08:57)
[2022-11-22] MEDS: ASPIRIN 81MG ENTERIC TABLET PO SCH (08:57)
[2022-11-22] MEDS: FENOFIBRATE 145MG TABLET (TRICOR) PO SCH (08:57)
[2022-11-22] MEDS: OMEPRAZOLE 20MG CAP PO SCH ×2 (08:57→21:09)
[2022-11-22] MEDS: rifAXIMin 550 MG TAB (XIFAXAN) PO SCH ×2 (08:57→21:09)
[2022-11-22] MEDS: MULTIVITAMINS/MINERALS THERAP 1 TAB PO SCH (08:57)
[2022-11-22] MEDS: DOCUSATE SODIUM 100MG CAPSULE PO SCH ×2 (08:57→21:10)
[2022-11-22] MEDS: GABAPENTIN 300 MG CAP PO SCH ×3 (08:57→21:08)
[2022-11-22] MEDS: CARVedilol 3.125 MG TAB PO SCH ×2 (08:57→21:09)
[2022-11-22] MEDS ORDERED: ramipriL 5 MG CAP PO SCH (09:00)
[2022-11-22] MEDS: PERCOCET 5MG/325MG TAB PO PRN (09:06)
[2022-11-22] MEDS: LEVEMIR (INSULIN DETEMIR) 1 UNITS/0.01ML SC SCH ×2 (09:55→21:00)
[2022-11-22] MEDS ORDERED: SENNA 8.6 MG TAB (SENOKOT) PO SCH (21:00)
[2022-11-23] VITALS (7 sets, daily range): BP systolic 113–134; BP diastolic 56–62; TEMP 97.7–98.7; O2SAT 86–97
[2022-11-23 06:07] LABS: HEMATOCRIT 28.4 % (42.0-52.0); HEMOGLOBIN 8.5 g/dl (13.5-17.5); MEAN CORPUSCULAR HEMOGLOBIN 25.7 pg (27.0-33.0); MEAN CORPUSCULAR HGB CONC 29.9 g/dl (32.0-36.5); MEAN CORPUSCULAR VOLUME 85.8 fl (80.0-96.0); PLATELET COUNT, AUTOMATED 100 10^3/uL (150-450); RED BLOOD COUNT 3.31 10^6/uL (4.30-6.10); WHITE BLOOD COUNT 3.7 10^3/uL (4.0-10.0)
[2022-11-23 06:39] LABS: ALKALINE PHOSPHATASE 137 U/L (46-116); ALT/SGPT 11 U/L (7.0-40); AST/SGOT 20 U/L (<34); BLOOD UREA NITROGEN 28 MG/DL (9-23); CALCIUM LEVEL 8.3 MG/DL (8.3-10.6); CARBON DIOXIDE LEVEL 28 MMOL/L (20-31); CHLORIDE LEVEL 108 MMOL/L (98-107); CREATININE FOR GFR 0.67 MG/DL (0.70-1.30); GLOMERULAR FILTRATION RATE > 60.0 (>49); GLUCOSE, FASTING 163 MG/DL (74-106); POTASSIUM SERUM 4.2 MMOL/L (3.5-5.1); SODIUM LEVEL 142 MMOL/L (136-145); TOTAL PROTEIN 5.1 G/DL (5.7-8.2)
[2022-11-23] MEDS: INSULIN LISPRO (NovoLOG) PER UNIT SC SCH ×4 (07:30→20:33)
[2022-11-23] MEDS: LEVEMIR (INSULIN DETEMIR) 1 UNITS/0.01ML SC SCH ×2 (08:01→20:32)
[2022-11-23] MEDS: CARVedilol 3.125 MG TAB PO SCH ×2 (09:00→20:31)
[2022-11-23] MEDS: ramipriL 1.25 MG CAP PO SCH (09:00)
[2022-11-23] MEDS: OMEPRAZOLE 20MG CAP PO SCH ×2 (09:46→20:32)
[2022-11-23] MEDS: ASPIRIN 81MG ENTERIC TABLET PO SCH (09:46)
[2022-11-23] MEDS: FLUoxetine 20MG CAP PO SCH (09:47)
[2022-11-23] MEDS: MULTIVITAMINS/MINERALS THERAP 1 TAB PO SCH (09:47)
[2022-11-23] MEDS: GABAPENTIN 300 MG CAP PO SCH ×3 (09:47→20:32)
[2022-11-23] MEDS: FENOFIBRATE 145MG TABLET (TRICOR) PO SCH (09:47)
[2022-11-23] MEDS: rifAXIMin 550 MG TAB (XIFAXAN) PO SCH ×2 (09:47→20:32)
[2022-11-23] MEDS: DOCUSATE SODIUM 100MG CAPSULE PO SCH ×2 (09:47→20:29)
[2022-11-23] MEDS: PERCOCET 5MG/325MG TAB PO PRN ×2 (09:49→15:09)
[2022-11-23] MEDS ORDERED: FENTANYL REMOVAL DOCUMENTATION MISC XX ONE (16:59)
[2022-11-23] MEDS ORDERED: fentaNYL 25 MCG/HR PATCH TD SCH (18:00)
[2022-11-23] MEDS ORDERED: FENTANYL REMOVAL DOCUMENTATION MISC XX SCH (18:00)
[2022-11-23] MEDS: MIRALAX *UNIT DOSE* 17GM PACKET PO SCH (20:29)
[2022-11-23] MEDS: SENNA 8.6 MG TAB (SENOKOT) PO SCH (20:32)
[2022-11-23] MEDS ORDERED: ENOXAPARIN 40MG/0.4ML SYRINGE (J1650 PER 10MG) SC SCH (21:00)
[2022-11-24 05:41] VITALS: BP 134/61; TEMP 97; O2SAT 93
[2022-11-24 06:33] LABS: HEMATOCRIT 29.4 % (42.0-52.0); HEMOGLOBIN 8.9 g/dl (13.5-17.5); MEAN CORPUSCULAR HEMOGLOBIN 25.7 pg (27.0-33.0); MEAN CORPUSCULAR HGB CONC 30.3 g/dl (32.0-36.5); PLATELET COUNT, AUTOMATED 100 10^3/uL (150-450); RED BLOOD COUNT 3.46 10^6/uL (4.30-6.10); WHITE BLOOD COUNT 2.8 10^3/uL (4.0-10.0)
[2022-11-24 06:56] LABS: ALBUMIN 2.1 G/DL (3.2-5.2); ALKALINE PHOSPHATASE 154 U/L (46-116); ALT/SGPT 14 U/L (7.0-40); AST/SGOT 21 U/L (<34); BILIRUBIN,TOTAL 0.9 MG/DL (0.3-1.2); BLOOD UREA NITROGEN 27 MG/DL (9-23); CALCIUM LEVEL 8.3 MG/DL (8.3-10.6); CARBON DIOXIDE LEVEL 29 MMOL/L (20-31); CHLORIDE LEVEL 107 MMOL/L (98-107); CREATININE FOR GFR 0.59 MG/DL (0.70-1.30); GLOMERULAR FILTRATION RATE > 60.0 (>49); GLUCOSE, FASTING 118 MG/DL (74-106); POTASSIUM SERUM 4.2 MMOL/L (3.5-5.1); SODIUM LEVEL 142 MMOL/L (136-145); TOTAL PROTEIN 5.3 G/DL (5.7-8.2)
[2022-11-24] MEDS: FENOFIBRATE 145MG TABLET (TRICOR) PO SCH (09:05)
[2022-11-24] MEDS: MULTIVITAMINS/MINERALS THERAP 1 TAB PO SCH (09:05)
[2022-11-24] MEDS: ASPIRIN 81MG ENTERIC TABLET PO SCH (09:05)
[2022-11-24] MEDS: MIRALAX *UNIT DOSE* 17GM PACKET PO SCH (09:05)
[2022-11-24] MEDS: DOCUSATE SODIUM 100MG CAPSULE PO SCH (09:05)
[2022-11-24] MEDS: OMEPRAZOLE 20MG CAP PO SCH (09:05)
[2022-11-24] MEDS: FLUoxetine 20MG CAP PO SCH (09:06)
[2022-11-24] MEDS: GABAPENTIN 300 MG CAP PO SCH (09:06)
[2022-11-24] MEDS: rifAXIMin 550 MG TAB (XIFAXAN) PO SCH (09:06)
[2022-11-24] MEDS: SENNA 8.6 MG TAB (SENOKOT) PO SCH (09:06)
[2022-11-24 09:07] VITALS: BP 132/60
[2022-11-24] MEDS: LEVEMIR (INSULIN DETEMIR) 1 UNITS/0.01ML SC SCH (09:07)
[2022-11-24] MEDS: ramipriL 1.25 MG CAP PO SCH (09:07)
[2022-11-24] MEDS: CARVedilol 3.125 MG TAB PO SCH (09:07)
[2022-11-24] MEDS: INSULIN LISPRO (NovoLOG) PER UNIT SC SCH ×2 (09:08→12:27)
[2022-11-24] MEDS: PERCOCET 5MG/325MG TAB PO PRN (12:26)
[2022-11-24] MEDS ORDERED: COLA100C5 PO (14:12)
[2022-11-24] MEDS ORDERED: SENN-188 PO (14:12)
[2022-11-24] MEDS ORDERED: PERCOCET PO (14:12)
[2022-11-24] MEDS ORDERED: INSULADS SC (14:12)
[2022-11-24] MEDS ORDERED: ACET1TAB55 PO (14:12)
== END 2022-11-24 15:50 | DRG 521 ==
LOC: M ED 15:22 → M ED INP 20:11 → M ICU 11-21 01:40 → M MSPAV 11-23 02:10
PROVIDERS: ADMIT Internal Medicine; ATTEND Internal Medicine
PROC: 0SRS0J9 Replacement of Left Hip Joint, Femoral Surface with Synthetic Substitute, Cemented, Open Approach (ICD-10-PCS; principal; 2022-11-21 13:00)
DX: S72.142A Displaced intertrochanteric fracture of left femur, initial encounter for closed fracture (principal); J96.91 Respiratory failure, unspecified with hypoxia; J90 Pleural effusion, not elsewhere classified; C34.90 Malignant neoplasm of unspecified part of unspecified bronchus or lung; D62 Acute posthemorrhagic anemia; I10 Essential (primary) hypertension; E78.00 Pure hypercholesterolemia, unspecified; I25.10 Atherosclerotic heart disease of native coronary artery without angina pectoris; K72.90 Hepatic failure, unspecified without coma; E11.42 Type 2 diabetes mellitus with diabetic polyneuropathy; R29.6 Repeated falls; K74.60 Unspecified cirrhosis of liver; Z92.3 Personal history of irradiation; W01.0XXA Fall on same level from slipping, tripping and stumbling without subsequent striking against object, initial encounter; Y92.9 Unspecified place or not applicable; Z79.899 Other long term (current) drug therapy; Z79.82 Long term (current) use of aspirin; Z79.84 Long term (current) use of oral hypoglycemic drugs; Z79.4 Long term (current) use of insulin; Z90.49 Acquired absence of other specified parts of digestive tract; Z95.5 Presence of coronary angioplasty implant and graft; Z87.891 Personal history of nicotine dependence

== ENCOUNTER → 2022-11-20 | Outpatient (CLI) | payer MEDICARE ==
[2022-11-20 11:04] LABS: PLATELET COUNT, AUTOMATED 172 10^3/uL (150-450)
[2022-11-20 11:30] LABS: INR 1.44; PROTHROMBIN TIME 17.8 SECONDS (12.5-14.5)
[2022-11-20 11:31] LABS: PARTIAL THROMBOPLASTIN TIME 32.8 SECONDS (24.8-34.2)
== END ==
LOC: M LAB 10:26
PROVIDERS: ATTEND Internal Medicine Pulmonary Disease
DX: Z01.812 Encounter for preprocedural laboratory examination (principal); Z79.82 Long term (current) use of aspirin; Z79.84 Long term (current) use of oral hypoglycemic drugs; Z79.4 Long term (current) use of insulin

== ENCOUNTER → 2022-11-20 | Outpatient (CLI) | payer MEDICARE ==
[~2022-11-20] MED LIST changes: +ACET1TAB55 PO; +COLA100C5 PO; +PERCOCET PO; +SENN-188 PO
[2022-11-20 10:45] VITALS: TEMP 97.6
[2022-11-20 13:05] LABS: SOURCE, BODY FLUID pH PLEURAL
[2022-11-20 13:15] VITALS: O2SAT 94
[2022-11-20 13:15] LABS: PLEURAL FL COLOR RED (COLORLESS); SOURCE, BODY FLUID PLEURAL
[2022-11-20 13:16] LABS: APPEARANCE, BODY FLUID TURBID (CLEAR)
[2022-11-20 13:29] LABS: SOURCE, BODY FLUID GLUCOSE PLEURAL
[2022-11-20 13:30] LABS: LDH, BODY FLUID 548 U/L (NOT ESTABLISHED); SOURCE, BODY FLUID LDH PLEURAL
[2022-11-20 13:31] LABS: AMYLASE, BODY FLUID 58 U/L (NOT ESTABLISHED); SOURCE, BODY FLUID AMYLASE PLEURAL; SOURCE, BODY FLUID TOT PROTEIN PLEURAL; TOTAL PROTEIN, BODY FLUID 4.4 G/DL (NOT ESTABLISHED)
[2022-11-20 14:20] VITALS: BP 127/60
== END ==
LOC: M IRPRO 10:17
PROVIDERS: ATTEND Internal Medicine
DX: J90 Pleural effusion, not elsewhere classified (principal)

== ENCOUNTER 2022-12-01 00:32 | Inpatient (IN) | payer MEDICARE ==
[~2022-12-01] VITALS: Ht 175.3 cm; Wt 84.1 kg
[~2022-12-01 00:32] MED LIST changes: +ACET1TAB55 PO; +COLA100C5 PO; +FENT1DIS14 TD; +FISH10002 PO; +MEGE40SU5 PO; +MIRA1POW3 PO; +PERCOCET PO; +SENN-188 PO; +VITMTA PO
[2022-12-01 01:05] LABS: BASO % 0.4 % (0.0-1.0); EOS # 0.1 10^3/uL (0.0-0.5); EOS % 1.7 % (0.0-3.0); HEMATOCRIT 29.8 % (42.0-52.0); HEMOGLOBIN 9.3 g/dl (13.5-17.5); LYMPH # 0.7 10^3/uL (1.5-5.0); LYMPH % 14.4 % (24.0-44.0); MEAN CORPUSCULAR HEMOGLOBIN 25.5 pg (27.0-33.0); MEAN CORPUSCULAR HGB CONC 31.2 g/dl (32.0-36.5); MEAN CORPUSCULAR VOLUME 81.6 fl (80.0-96.0); MONO # 0.4 10^3/uL (0.0-0.8); MONO % 7.6 % (2.0-8.0); NEUTROPHILS # 3.4 10^3/uL (1.5-8.5); NEUTROPHILS % 75.2 % (36.0-66.0); PLATELET COUNT, AUTOMATED 165 10^3/uL (150-450); RED BLOOD COUNT 3.65 10^6/uL (4.30-6.10); WHITE BLOOD COUNT 4.6 10^3/uL (4.0-10.0)
[2022-12-01 01:25] LABS: INR 1.61; PROTHROMBIN TIME 18.7 SECONDS (12.5-14.5)
[2022-12-01 01:26] LABS: PARTIAL THROMBOPLASTIN TIME 27.3 SECONDS (24.8-34.2)
[2022-12-01 01:39] LABS: CK-MB VALUE MASS 1.1 NG/ML (<3.6)
[2022-12-01] MEDS ORDERED: MIDAZOLAM INJ 2MG/2ML VIAL IV STA (01:39)
[2022-12-01] MEDS ORDERED: MIDAZOLAM INJ 2MG/2ML VIAL IV ONE (01:40)
[2022-12-01 01:41] LABS: ALBUMIN 2.2 G/DL (3.2-5.2); ALKALINE PHOSPHATASE 142 U/L (46-116); ALT/SGPT 13 U/L (7.0-40); AST/SGOT 22 U/L (<34); BILIRUBIN,TOTAL 0.6 MG/DL (0.3-1.2); BLOOD UREA NITROGEN 14 MG/DL (9-23); CALCIUM LEVEL 8.4 MG/DL (8.3-10.6); CARBON DIOXIDE LEVEL 25 MMOL/L (20-31); CHLORIDE LEVEL 109 MMOL/L (98-107); CPK CREATINE PHOSPHOKINASE 39 U/L (46-171); CREATININE FOR GFR 0.55 MG/DL (0.70-1.30); GLOMERULAR FILTRATION RATE > 60.0 (>49); GLUCOSE, FASTING 40 MG/DL (74-106); MAGNESIUM LEVEL 1.5 MG/DL (1.8-2.4); MB/CK RELATIVE INDEX 2.82 (< OR =4); POTASSIUM SERUM 3.4 MMOL/L (3.5-5.1); SODIUM LEVEL 143 MMOL/L (136-145); TOTAL PROTEIN 5.5 G/DL (5.7-8.2)
[2022-12-01] MEDS ORDERED: ISOVUE-370 76% 100ML VIAL As Ordered ONE (01:46)
[2022-12-01 02:09] LABS: ABG BASE EXCESS -2.8 (-2.0-2.0); ABG HCO3 21.9 MMOL/L (22.0-26.0); ABG O2 SATURATION 97.3 % (95.0-99.0); ABG PARTIAL PRESSURE CO2 37.9 mmHg (35.0-45.0); ABG PARTIAL PRESSURE O2 100.7 mmHg (75.0-100.0); ABG STANDARD HCO3 22.1 MMOL/L. (22.0-26.0); ABG TOTAL CO2 23.1 MMOL/L (23.0-31.0)
[2022-12-01] MEDS ORDERED: DEXTROSE 50% 50ML SYRINGE IV STA ×5 (02:11→16:01)
[2022-12-01] MEDS ORDERED: D10W/0.45% SODIUM CHLORIDE 1,000 ML IV SCH (03:55)
[2022-12-01] MEDS ORDERED: GLUCOSE 4GM CHEW TABLET PO PRN (04:50)
[2022-12-01] MEDS ORDERED: GLUCAGON INJ 1MG VIAL SC PRN (04:50)
[2022-12-01] MEDS ORDERED: DEXTROSE 50% 50ML SYRINGE IV PRN (04:50)
[2022-12-01] MEDS ORDERED: ACETAMINOPHEN TAB 650MG DOSE (2X325MG) PO PRN (04:50)
[2022-12-01] MEDS: D10W/0.45% SODIUM CHLORIDE 1,000 ML IV SCH ×3 (05:00→22:56)
[2022-12-01 05:02] LABS: CK-MB VALUE MASS < 1.0 NG/ML (<3.6)
[2022-12-01 05:04] LABS: CPK CREATINE PHOSPHOKINASE 36 U/L (46-171); MB/CK RELATIVE INDEX 2.77 (< OR =4)
[2022-12-01 05:11] LABS: RSV AMPLIFICATION NEGATIVE (NEGATIVE)
[2022-12-01] MEDS ORDERED: SENN8.6T28 PO (05:14)
[2022-12-01] MEDS ORDERED: DOCU100C16 PO (05:14)
[2022-12-01] MEDS ORDERED: INSU100I38 SC (05:15)
[2022-12-01] MEDS ORDERED: HOME MED LIST COMPLETE! XX SCH (05:20)
[2022-12-01 05:30] LABS: HEMOGLOBIN 8.9 g/dl (13.5-17.5); MEAN CORPUSCULAR HEMOGLOBIN 25.4 pg (27.0-33.0); MEAN CORPUSCULAR HGB CONC 30.7 g/dl (32.0-36.5); MEAN CORPUSCULAR VOLUME 82.9 fl (80.0-96.0); PLATELET COUNT, AUTOMATED 122 10^3/uL (150-450); WHITE BLOOD COUNT 3.1 10^3/uL (4.0-10.0)
[2022-12-01] MEDS: MAG SULF 1GM/100ML (MAG RUN) 1 GM in IV 1 EA IV SCH ×2 (05:59→07:51)
[2022-12-01 06:04] LABS: BLOOD UREA NITROGEN 15 MG/DL (9-23); CALCIUM LEVEL 8.3 MG/DL (8.3-10.6); CARBON DIOXIDE LEVEL 27 MMOL/L (20-31); CHLORIDE LEVEL 107 MMOL/L (98-107); CREATININE FOR GFR 0.58 MG/DL (0.70-1.30); GLOMERULAR FILTRATION RATE > 60.0 (>49); GLUCOSE, FASTING 68 MG/DL (74-106); MAGNESIUM LEVEL 1.6 MG/DL (1.8-2.4); POTASSIUM SERUM 3.6 MMOL/L (3.5-5.1); SODIUM LEVEL 141 MMOL/L (136-145)
[2022-12-01 06:16] LABS: PROCALCITONIN 0.07 ng/ml
[2022-12-01] MEDS: KCL 10MEQ/100ML SWI (KRUN) 10 MEQ in IV 1 EA IV SCH ×2 (08:30→09:50)
[2022-12-01] MEDS ORDERED: MIRALAX *UNIT DOSE* 17GM PACKET PO PRN (08:50)
[2022-12-01] MEDS: DOCUSATE SODIUM 100MG CAPSULE PO SCH ×2 (09:00→21:00)
[2022-12-01] MEDS ORDERED: ramipriL 1.25 MG CAP PO SCH (09:00)
[2022-12-01] MEDS: CARVedilol 3.125 MG TAB PO SCH ×2 (09:00→21:00)
[2022-12-01] MEDS: OMEPRAZOLE 20MG CAP PO SCH ×2 (09:00→22:55)
[2022-12-01] MEDS: GABAPENTIN 300 MG CAP PO SCH ×3 (09:00→22:55)
[2022-12-01] MEDS ORDERED: CARVedilol 3.125 MG TAB PO SCH (09:00)
[2022-12-01] MEDS ORDERED: OMEPRAZOLE 20MG CAP PO SCH (09:00)
[2022-12-01 10:30] VITALS: BP 138/64; TEMP 97.9; O2SAT 96
[2022-12-01 12:42] VITALS: BP 129/66; TEMP 98.1; O2SAT 95
[2022-12-01 13:41] LABS: CHOLESTEROL LEVEL 79 MG/DL (<200); CHOLESTEROL RISK RATIO 3.76 (<5); LDL CHOLESTEROL 41.6 MG/DL (<100); TRIGLYCERIDES LEVEL 82 MG/DL (<150)
[2022-12-01 14:36] LABS: HEMOGLOBIN A1c 5.8 % (4.0-6.0)
[2022-12-01 15:47] VITALS: BP 134/65; TEMP 97.3; O2SAT 96
[2022-12-01 15:49] LABS: PH BODY FLUID 7.595 UNITS (NOT ESTABLISHED); SOURCE, BODY FLUID pH PLEURAL
[2022-12-01] MEDS: SENNA 8.6 MG TAB (SENOKOT) PO SCH ×2 (15:52→21:00)
[2022-12-01 15:54] LABS: SOURCE, BODY FLUID PLEURAL
[2022-12-01 15:55] LABS: APPEARANCE, BODY FLUID TURBID (CLEAR); PLEURAL FL COLOR RED (COLORLESS)
[2022-12-01] MEDS ORDERED: KCL 10MEQ/100ML SWI (KRUN) 10 MEQ in IV 1 EA IV ONE (16:00)
[2022-12-01] MEDS: ramipriL 1.25 MG CAP PO SCH (16:31)
[2022-12-01] MEDS: FLUoxetine 20MG CAP PO SCH (16:31)
[2022-12-01] MEDS: HEPARIN SOD (PORCINE) 5000UNITS/ML 1ML VIAL/SYRINGE SQ SCH ×2 (16:31→22:56)
[2022-12-01 16:33] LABS: SOURCE, BODY FLUID GLUCOSE PLEURAL
[2022-12-01] MEDS: MULTIVITAMINS/MINERALS THERAP 1 TAB PO SCH (16:33)
[2022-12-01] MEDS: LACTULOSE 20GM/30ML SYRUP UDC PO SCH ×2 (16:33→21:00)
[2022-12-01 16:34] LABS: LDH, BODY FLUID 468 U/L (NOT ESTABLISHED); SOURCE, BODY FLUID LDH PLEURAL
[2022-12-01] MEDS: ASPIRIN 81MG ENTERIC TABLET PO SCH (16:34)
[2022-12-01 16:35] LABS: AMYLASE, BODY FLUID 61 U/L (NOT ESTABLISHED); SOURCE, BODY FLUID AMYLASE PLEURAL; SOURCE, BODY FLUID TOT PROTEIN PLEURAL; TOTAL PROTEIN, BODY FLUID 3.2 G/DL (NOT ESTABLISHED)
[2022-12-01] MEDS: FENOFIBRATE 145MG TABLET (TRICOR) PO SCH (18:01)
[2022-12-01] MEDS: PERCOCET 5MG/325MG TAB PO PRN (18:02)
[2022-12-01 18:50] VITALS: BP 144/73; TEMP 97; O2SAT 97
[2022-12-01 21:30] VITALS: BP 128/60; TEMP 97.2; O2SAT 98
[2022-12-01] MEDS: ROSUVASTATIN 10 MG TAB (CRESTOR) PO SCH (22:55)
[2022-12-02] VITALS (12 sets, daily range): BP systolic 117–126; BP diastolic 57–76; TEMP 97.3–98.5; O2SAT 93–98
[2022-12-02] MEDS ORDERED: diphenhydrAMINE 25MG CAP PO ONE (00:05)
[2022-12-02] MEDS ORDERED: RAMELTEON 8 MG TAB (ROZEREM) PO PRN (00:05)
[2022-12-02] MEDS: PERCOCET 5MG/325MG TAB PO PRN ×2 (01:11→12:42)
[2022-12-02 05:46] LABS: BASO % 0.3 % (0.0-1.0); EOS % 0.8 % (0.0-3.0); HEMATOCRIT 30.1 % (42.0-52.0); HEMOGLOBIN 9.1 g/dl (13.5-17.5); LYMPH # 0.5 10^3/uL (1.5-5.0); LYMPH % 13.9 % (24.0-44.0); MEAN CORPUSCULAR HGB CONC 30.2 g/dl (32.0-36.5); MEAN CORPUSCULAR VOLUME 82.7 fl (80.0-96.0); MONO # 0.3 10^3/uL (0.0-0.8); MONO % 6.9 % (2.0-8.0); NEUTROPHILS # 2.8 10^3/uL (1.5-8.5); NEUTROPHILS % 77.5 % (36.0-66.0); PLATELET COUNT, AUTOMATED 147 10^3/uL (150-450); RED BLOOD COUNT 3.64 10^6/uL (4.30-6.10); WHITE BLOOD COUNT 3.6 10^3/uL (4.0-10.0)
[2022-12-02] MEDS: D10W/0.45% SODIUM CHLORIDE 1,000 ML IV SCH ×2 (05:52→17:15)
[2022-12-02 06:15] LABS: ALKALINE PHOSPHATASE 122 U/L (46-116); ALT/SGPT 15 U/L (7.0-40); AST/SGOT 22 U/L (<34); BILIRUBIN,TOTAL 0.5 MG/DL (0.3-1.2); BLOOD UREA NITROGEN 7 MG/DL (9-23); CALCIUM LEVEL 8.3 MG/DL (8.3-10.6); CARBON DIOXIDE LEVEL 27 MMOL/L (20-31); CHLORIDE LEVEL 109 MMOL/L (98-107); CREATININE FOR GFR 0.61 MG/DL (0.70-1.30); GLOMERULAR FILTRATION RATE > 60.0 (>49); GLUCOSE, FASTING 74 MG/DL (74-106); MAGNESIUM LEVEL 1.7 MG/DL (1.8-2.4); PHOSPHORUS LEVEL 3.4 MG/DL (2.4-5.1); SODIUM LEVEL 143 MMOL/L (136-145); TOTAL PROTEIN 5.1 G/DL (5.7-8.2)
[2022-12-02] MEDS: HEPARIN SOD (PORCINE) 5000UNITS/ML 1ML VIAL/SYRINGE SQ SCH ×3 (06:33→20:53)
[2022-12-02] MEDS: ramipriL 1.25 MG CAP PO SCH (09:00)
[2022-12-02] MEDS: CARVedilol 3.125 MG TAB PO SCH ×2 (09:00→20:05)
[2022-12-02] MEDS: DOCUSATE SODIUM 100MG CAPSULE PO SCH ×2 (09:28→20:53)
[2022-12-02] MEDS: ASPIRIN 81MG ENTERIC TABLET PO SCH (09:28)
[2022-12-02] MEDS: SENNA 8.6 MG TAB (SENOKOT) PO SCH ×2 (09:28→20:53)
[2022-12-02] MEDS: FLUoxetine 20MG CAP PO SCH (09:28)
[2022-12-02] MEDS: FENOFIBRATE 145MG TABLET (TRICOR) PO SCH (09:28)
[2022-12-02] MEDS: GABAPENTIN 300 MG CAP PO SCH ×3 (09:29→20:53)
[2022-12-02] MEDS: MULTIVITAMINS/MINERALS THERAP 1 TAB PO SCH (09:29)
[2022-12-02] MEDS: OMEPRAZOLE 20MG CAP PO SCH ×2 (09:29→20:53)
[2022-12-02] MEDS: LACTULOSE 20GM/30ML SYRUP UDC PO SCH ×3 (09:29→20:52)
[2022-12-02 15:10] LABS: C-PEPTIDE 0.3 ng/mL (1.1-4.4); INSULIN LEVEL 4.3 uIU/mL (2.6-24.9)
[2022-12-02] MEDS ORDERED: PERCOCET 5MG/325MG TAB PO ONE (15:55)
[2022-12-02] MEDS ORDERED: MORPHINE 2 MG/ML 1ML VIAL IV PRN (15:55)
[2022-12-02] MEDS ORDERED: PERCOCET 5MG/325MG TAB PO PRN (20:00)
[2022-12-02] MEDS: INSULIN LISPRO (NovoLOG) PER UNIT SC SCH (20:54)
[2022-12-02] MEDS: ROSUVASTATIN 10 MG TAB (CRESTOR) PO SCH (20:56)
[2022-12-02] MEDS ORDERED: D10W 1,000 ML IV SCH (22:00)
[2022-12-03 03:38] VITALS: BP 121/60; TEMP 97.3; O2SAT 94
[2022-12-03 05:55] LABS: HEMATOCRIT 28.2 % (42.0-52.0); HEMOGLOBIN 8.6 g/dl (13.5-17.5); MEAN CORPUSCULAR HEMOGLOBIN 25.3 pg (27.0-33.0); MEAN CORPUSCULAR HGB CONC 30.5 g/dl (32.0-36.5); MEAN CORPUSCULAR VOLUME 82.9 fl (80.0-96.0); PLATELET COUNT, AUTOMATED 129 10^3/uL (150-450)
[2022-12-03] MEDS: HEPARIN SOD (PORCINE) 5000UNITS/ML 1ML VIAL/SYRINGE SQ SCH ×3 (06:14→20:28)
[2022-12-03 06:23] LABS: BLOOD UREA NITROGEN 13 MG/DL (9-23); CALCIUM LEVEL 8.1 MG/DL (8.3-10.6); CARBON DIOXIDE LEVEL 26 MMOL/L (20-31); CHLORIDE LEVEL 109 MMOL/L (98-107); CREATININE FOR GFR 0.62 MG/DL (0.70-1.30); GLOMERULAR FILTRATION RATE > 60.0 (>49); GLUCOSE, FASTING 144 MG/DL (74-106); POTASSIUM SERUM 4.4 MMOL/L (3.5-5.1); SODIUM LEVEL 142 MMOL/L (136-145)
[2022-12-03] MEDS: PERCOCET 5MG/325MG TAB PO PRN ×3 (07:17→22:32)
[2022-12-03 07:50] VITALS: BP 127/62; TEMP 96.8; O2SAT 96
[2022-12-03] MEDS: GABAPENTIN 300 MG CAP PO SCH ×3 (08:23→20:27)
[2022-12-03] MEDS: LACTULOSE 20GM/30ML SYRUP UDC PO SCH ×3 (08:23→19:57)
[2022-12-03] MEDS: SENNA 8.6 MG TAB (SENOKOT) PO SCH ×2 (08:23→20:28)
[2022-12-03] MEDS: MULTIVITAMINS/MINERALS THERAP 1 TAB PO SCH (08:23)
[2022-12-03] MEDS: INSULIN LISPRO (NovoLOG) PER UNIT SC SCH ×4 (08:23→20:09)
[2022-12-03] MEDS: FENOFIBRATE 145MG TABLET (TRICOR) PO SCH (08:24)
[2022-12-03] MEDS: ASPIRIN 81MG ENTERIC TABLET PO SCH (08:24)
[2022-12-03] MEDS: FLUoxetine 20MG CAP PO SCH (08:24)
[2022-12-03] MEDS: OMEPRAZOLE 20MG CAP PO SCH ×2 (08:24→20:27)
[2022-12-03] MEDS: DOCUSATE SODIUM 100MG CAPSULE PO SCH ×2 (08:24→20:28)
[2022-12-03] MEDS: CARVedilol 3.125 MG TAB PO SCH ×2 (09:00→20:23)
[2022-12-03] MEDS: ramipriL 1.25 MG CAP PO SCH (09:00)
[2022-12-03 11:50] VITALS: BP 120/58; TEMP 97.3; O2SAT 97
[2022-12-03 19:26] VITALS: BP 121/60; TEMP 97.6; O2SAT 97
[2022-12-03] MEDS: ROSUVASTATIN 10 MG TAB (CRESTOR) PO SCH (20:27)
[2022-12-04 03:37] VITALS: BP 143/65; TEMP 97.3; O2SAT 97
[2022-12-04] MEDS: PERCOCET 5MG/325MG TAB PO PRN ×2 (04:33→11:28)
[2022-12-04] MEDS: HEPARIN SOD (PORCINE) 5000UNITS/ML 1ML VIAL/SYRINGE SQ SCH ×3 (05:11→22:47)
[2022-12-04 05:18] LABS: HEMATOCRIT 27.5 % (42.0-52.0); HEMOGLOBIN 8.4 g/dl (13.5-17.5); MEAN CORPUSCULAR HEMOGLOBIN 25.1 pg (27.0-33.0); MEAN CORPUSCULAR HGB CONC 30.5 g/dl (32.0-36.5); MEAN CORPUSCULAR VOLUME 82.3 fl (80.0-96.0); PLATELET COUNT, AUTOMATED 109 10^3/uL (150-450); RED BLOOD COUNT 3.34 10^6/uL (4.30-6.10); WHITE BLOOD COUNT 3.1 10^3/uL (4.0-10.0)
[2022-12-04 05:43] LABS: BLOOD UREA NITROGEN 19 MG/DL (9-23); CALCIUM LEVEL 8.1 MG/DL (8.3-10.6); CARBON DIOXIDE LEVEL 27 MMOL/L (20-31); CHLORIDE LEVEL 109 MMOL/L (98-107); CREATININE FOR GFR 0.59 MG/DL (0.70-1.30); GLOMERULAR FILTRATION RATE > 60.0 (>49); GLUCOSE, FASTING 148 MG/DL (74-106); POTASSIUM SERUM 4.1 MMOL/L (3.5-5.1); SODIUM LEVEL 143 MMOL/L (136-145)
[2022-12-04 07:50] VITALS: BP 147/81; TEMP 97.6; O2SAT 97
[2022-12-04] MEDS: LACTULOSE 20GM/30ML SYRUP UDC PO SCH ×4 (09:15→20:14)
[2022-12-04] MEDS: DOCUSATE SODIUM 100MG CAPSULE PO SCH ×3 (09:16→20:14)
[2022-12-04] MEDS: FENOFIBRATE 145MG TABLET (TRICOR) PO SCH (09:16)
[2022-12-04] MEDS: FLUoxetine 20MG CAP PO SCH (09:16)
[2022-12-04] MEDS: SENNA 8.6 MG TAB (SENOKOT) PO SCH ×3 (09:16→20:14)
[2022-12-04] MEDS: MULTIVITAMINS/MINERALS THERAP 1 TAB PO SCH (09:16)
[2022-12-04] MEDS: GABAPENTIN 300 MG CAP PO SCH ×3 (09:16→20:03)
[2022-12-04] MEDS: INSULIN LISPRO (NovoLOG) PER UNIT SC SCH ×4 (09:19→21:00)
[2022-12-04] MEDS: ramipriL 1.25 MG CAP PO SCH (09:26)
[2022-12-04] MEDS: OMEPRAZOLE 20MG CAP PO SCH ×2 (09:26→20:03)
[2022-12-04] MEDS: CARVedilol 3.125 MG TAB PO SCH ×2 (09:26→20:04)
[2022-12-04] MEDS: ASPIRIN 81MG ENTERIC TABLET PO SCH (09:26)
[2022-12-04] MEDS ORDERED: PERCOCET PO (11:46)
[2022-12-04] MEDS ORDERED: HYDROMORPHONE HCL 0.5 MG/ 0.5 ML SYRINGE IV PRN (12:15)
[2022-12-04 12:30] VITALS: BP 136/61; O2SAT 96
[2022-12-04] MEDS: HYDROMORPHONE HCL 0.5 MG/ 0.5 ML SYRINGE IV PRN ×2 (12:38→20:04)
[2022-12-04] MEDS: LIDOCAINE 5% (LIDODERM) PATCH TD SCH (12:51)
[2022-12-04 15:35] VITALS: BP 120/58; TEMP 97.3; O2SAT 97
[2022-12-04 19:47] VITALS: BP 140/65; TEMP 98; O2SAT 96
[2022-12-04] MEDS: ROSUVASTATIN 10 MG TAB (CRESTOR) PO SCH (20:04)
[2022-12-05 04:39] VITALS: BP 143/72; TEMP 97.9; O2SAT 98
[2022-12-05 04:39] LABS: HEMATOCRIT 28.4 % (42.0-52.0); HEMOGLOBIN 8.5 g/dl (13.5-17.5); MEAN CORPUSCULAR HEMOGLOBIN 24.9 pg (27.0-33.0); MEAN CORPUSCULAR HGB CONC 29.9 g/dl (32.0-36.5); MEAN CORPUSCULAR VOLUME 83.3 fl (80.0-96.0); PLATELET COUNT, AUTOMATED 112 10^3/uL (150-450); RED BLOOD COUNT 3.41 10^6/uL (4.30-6.10)
[2022-12-05] MEDS: HYDROMORPHONE HCL 0.5 MG/ 0.5 ML SYRINGE IV PRN ×3 (04:59→23:29)
[2022-12-05 05:05] LABS: BLOOD UREA NITROGEN 22 MG/DL (9-23); CALCIUM LEVEL 8.4 MG/DL (8.3-10.6); CARBON DIOXIDE LEVEL 28 MMOL/L (20-31); CHLORIDE LEVEL 105 MMOL/L (98-107); CREATININE FOR GFR 0.56 MG/DL (0.70-1.30); GLOMERULAR FILTRATION RATE > 60.0 (>49); GLUCOSE, FASTING 185 MG/DL (74-106); POTASSIUM SERUM 4.3 MMOL/L (3.5-5.1); SODIUM LEVEL 141 MMOL/L (136-145)
[2022-12-05] MEDS: HEPARIN SOD (PORCINE) 5000UNITS/ML 1ML VIAL/SYRINGE SQ SCH ×3 (06:44→21:00)
[2022-12-05 07:29] VITALS: BP 138/65; TEMP 98; O2SAT 94
[2022-12-05] MEDS: FENOFIBRATE 145MG TABLET (TRICOR) PO SCH (08:47)
[2022-12-05] MEDS: DOCUSATE SODIUM 100MG CAPSULE PO SCH ×2 (08:47→21:00)
[2022-12-05] MEDS: GABAPENTIN 300 MG CAP PO SCH ×3 (08:47→20:59)
[2022-12-05] MEDS: SENNA 8.6 MG TAB (SENOKOT) PO SCH ×2 (08:47→21:00)
[2022-12-05] MEDS: FLUoxetine 20MG CAP PO SCH (08:47)
[2022-12-05] MEDS: LIDOCAINE 5% (LIDODERM) PATCH TD SCH (08:47)
[2022-12-05] MEDS: OMEPRAZOLE 20MG CAP PO SCH ×2 (08:48→20:59)
[2022-12-05] MEDS: ASPIRIN 81MG ENTERIC TABLET PO SCH (08:48)
[2022-12-05] MEDS: MULTIVITAMINS/MINERALS THERAP 1 TAB PO SCH (08:48)
[2022-12-05] MEDS: INSULIN LISPRO (NovoLOG) PER UNIT SC SCH ×4 (08:54→20:53)
[2022-12-05] MEDS: LACTULOSE 20GM/30ML SYRUP UDC PO SCH ×3 (08:55→21:00)
[2022-12-05] MEDS: CARVedilol 3.125 MG TAB PO SCH ×2 (08:55→21:00)
[2022-12-05] MEDS: ramipriL 1.25 MG CAP PO SCH (08:55)
[2022-12-05 13:13] VITALS: BP 124/58; TEMP 97.4; O2SAT 95
[2022-12-05] MEDS ORDERED: MORPHINE 2 MG/ML 1ML VIAL IV PRN (15:20)
[2022-12-05] MEDS: MORPHINE 2 MG/ML 1ML VIAL IV PRN ×2 (16:39→21:00)
[2022-12-05 20:05] VITALS: BP 121/56; TEMP 97.6; O2SAT 98
[2022-12-05] MEDS: ROSUVASTATIN 10 MG TAB (CRESTOR) PO SCH (20:59)
[2022-12-06 03:51] VITALS: BP 100/53; TEMP 97.4; O2SAT 97
[2022-12-06 05:15] LABS: HEMATOCRIT 29.2 % (42.0-52.0); HEMOGLOBIN 8.8 g/dl (13.5-17.5); MEAN CORPUSCULAR HEMOGLOBIN 24.9 pg (27.0-33.0); MEAN CORPUSCULAR HGB CONC 30.1 g/dl (32.0-36.5); MEAN CORPUSCULAR VOLUME 82.7 fl (80.0-96.0); PLATELET COUNT, AUTOMATED 118 10^3/uL (150-450); RED BLOOD COUNT 3.53 10^6/uL (4.30-6.10); WHITE BLOOD COUNT 3.6 10^3/uL (4.0-10.0)
[2022-12-06 05:37] LABS: BLOOD UREA NITROGEN 23 MG/DL (9-23); CALCIUM LEVEL 8.3 MG/DL (8.3-10.6); CARBON DIOXIDE LEVEL 29 MMOL/L (20-31); CHLORIDE LEVEL 104 MMOL/L (98-107); CREATININE FOR GFR 0.59 MG/DL (0.70-1.30); GLOMERULAR FILTRATION RATE > 60.0 (>49); GLUCOSE, FASTING 151 MG/DL (74-106); POTASSIUM SERUM 3.9 MMOL/L (3.5-5.1); SODIUM LEVEL 140 MMOL/L (136-145)
[2022-12-06] MEDS: HEPARIN SOD (PORCINE) 5000UNITS/ML 1ML VIAL/SYRINGE SQ SCH ×3 (06:48→22:13)
[2022-12-06] MEDS: HYDROMORPHONE HCL 0.5 MG/ 0.5 ML SYRINGE IV PRN (07:25)
[2022-12-06] MEDS: INSULIN LISPRO (NovoLOG) PER UNIT SC SCH ×4 (07:30→20:57)
[2022-12-06 08:18] VITALS: BP 98/46; TEMP 97.4; O2SAT 96
[2022-12-06] MEDS ORDERED: MORPHINE 4 MG/ML 1ML VIAL IV PRN (08:40)
[2022-12-06] MEDS ORDERED: MORPHINE 2 MG/ML 1ML VIAL IV PRN ×2 (08:40→17:30)
[2022-12-06] MEDS: ramipriL 1.25 MG CAP PO SCH (09:00)
[2022-12-06] MEDS: CARVedilol 3.125 MG TAB PO SCH ×2 (09:00→21:00)
[2022-12-06] MEDS: FENOFIBRATE 145MG TABLET (TRICOR) PO SCH (09:10)
[2022-12-06] MEDS: LIDOCAINE 5% (LIDODERM) PATCH TD SCH (09:10)
[2022-12-06] MEDS: LACTULOSE 20GM/30ML SYRUP UDC PO SCH ×3 (09:10→21:00)
[2022-12-06] MEDS: MULTIVITAMINS/MINERALS THERAP 1 TAB PO SCH (09:11)
[2022-12-06] MEDS: OMEPRAZOLE 20MG CAP PO SCH ×2 (09:11→21:02)
[2022-12-06] MEDS: GABAPENTIN 300 MG CAP PO SCH ×3 (09:11→21:02)
[2022-12-06] MEDS: SENNA 8.6 MG TAB (SENOKOT) PO SCH ×2 (09:11→21:00)
[2022-12-06] MEDS: ASPIRIN 81MG ENTERIC TABLET PO SCH (09:11)
[2022-12-06] MEDS: DOCUSATE SODIUM 100MG CAPSULE PO SCH ×2 (09:11→21:00)
[2022-12-06] MEDS: FLUoxetine 20MG CAP PO SCH (09:11)
[2022-12-06 12:15] VITALS: BP 124/62
[2022-12-06 16:09] VITALS: BP 127/60; TEMP 97.7; O2SAT 93
[2022-12-06 19:45] VITALS: BP 112/53; TEMP 97.9; O2SAT 96
[2022-12-06] MEDS: ROSUVASTATIN 10 MG TAB (CRESTOR) PO SCH (21:02)
[2022-12-06] MEDS: MORPHINE 4 MG/ML 1ML VIAL IV SCH (22:14)
[2022-12-07 03:30] VITALS: BP 125/58; TEMP 98.7; O2SAT 97
[2022-12-07 05:00] LABS: HEMATOCRIT 28.5 % (42.0-52.0); HEMOGLOBIN 8.6 g/dl (13.5-17.5); MEAN CORPUSCULAR HEMOGLOBIN 24.9 pg (27.0-33.0); MEAN CORPUSCULAR HGB CONC 30.2 g/dl (32.0-36.5); MEAN CORPUSCULAR VOLUME 82.6 fl (80.0-96.0); PLATELET COUNT, AUTOMATED 100 10^3/uL (150-450); RED BLOOD COUNT 3.45 10^6/uL (4.30-6.10); WHITE BLOOD COUNT 2.6 10^3/uL (4.0-10.0)
[2022-12-07 05:24] LABS: BLOOD UREA NITROGEN 20 MG/DL (9-23); CALCIUM LEVEL 8.4 MG/DL (8.3-10.6); CARBON DIOXIDE LEVEL 32 MMOL/L (20-31); CHLORIDE LEVEL 104 MMOL/L (98-107); GLOMERULAR FILTRATION RATE > 60.0 (>49); GLUCOSE, FASTING 160 MG/DL (74-106); SODIUM LEVEL 140 MMOL/L (136-145)
[2022-12-07] MEDS: HEPARIN SOD (PORCINE) 5000UNITS/ML 1ML VIAL/SYRINGE SQ SCH ×2 (05:34→13:22)
[2022-12-07] MEDS: MORPHINE 4 MG/ML 1ML VIAL IV SCH (05:34)
[2022-12-07] MEDS: INSULIN LISPRO (NovoLOG) PER UNIT SC SCH ×2 (07:30→12:00)
[2022-12-07] MEDS ORDERED: IBUPROFEN 100MG 5ML ORAL SUSP UDC PO SCH (08:00)
[2022-12-07] MEDS ORDERED: IBUPROFEN 800 MG TAB PO SCH (08:07)
[2022-12-07 08:16] VITALS: BP 135/61; TEMP 98.2; O2SAT 96
[2022-12-07] MEDS: LIDOCAINE 5% (LIDODERM) PATCH TD SCH (08:56)
[2022-12-07] MEDS: ASPIRIN 81MG ENTERIC TABLET PO SCH (08:57)
[2022-12-07] MEDS: FLUoxetine 20MG CAP PO SCH (08:57)
[2022-12-07] MEDS: DOCUSATE SODIUM 100MG CAPSULE PO SCH (08:57)
[2022-12-07] MEDS: MULTIVITAMINS/MINERALS THERAP 1 TAB PO SCH (08:57)
[2022-12-07] MEDS: OMEPRAZOLE 20MG CAP PO SCH (08:57)
[2022-12-07] MEDS: LACTULOSE 20GM/30ML SYRUP UDC PO SCH ×2 (08:57→16:00)
[2022-12-07] MEDS: SENNA 8.6 MG TAB (SENOKOT) PO SCH (08:58)
[2022-12-07 08:59] VITALS: BP 135/61
[2022-12-07] MEDS: GABAPENTIN 300 MG CAP PO SCH ×2 (08:59→16:00)
[2022-12-07] MEDS: CARVedilol 3.125 MG TAB PO SCH (08:59)
[2022-12-07] MEDS: FENOFIBRATE 145MG TABLET (TRICOR) PO SCH (09:13)
[2022-12-07] MEDS ORDERED: IBUP-1114 PO (12:23)
[2022-12-07] MEDS ORDERED: MORP30TASA PO (12:23)
[2022-12-07] MEDS ORDERED: MORP15TA2 PO (12:23)
[2022-12-07] MEDS ORDERED: LACT20EL PO (12:26)
[2022-12-07] MEDS ORDERED: MORPHINE 30 MG SA TAB PO ONE (13:00)
[2022-12-07] MEDS ORDERED: MORPHINE 30 MG TAB **MSIR PO PRN (13:50)
[2022-12-07] MEDS ORDERED: PILL CUTTER 1 EACH XX PRN (14:00)
[2022-12-08] MEDS ORDERED: NARC1SPR NARES (16:04)
[2022-12-08] MEDS ORDERED: MORP-69 PO (16:04)
[2022-12-11] MEDS ORDERED: MORP15TA2 PO (22:24)
[2022-12-11] MEDS ORDERED: SERT50TA29 PO (22:24)
[2022-12-11] MEDS ORDERED: LACT10SO3 PO (22:24)
[2022-12-11] MEDS ORDERED: IBUP1TAB5 PO (22:24)
== END 2022-12-07 17:05 | disposition home health service (06) | DRG 987 ==
LOC: M ED 00:32 → M ED INP 04:49 → M PCU 10:28 → ENRESERV 10:45
PROVIDERS: ADMIT Family Medicine; ATTEND Internal Medicine
PROC: 0W993ZZ Drainage of Right Pleural Cavity, Percutaneous Approach (ICD-10-PCS; 2022-12-01)
PROC: 0QB03ZX Excision of Lumbar Vertebra, Percutaneous Approach, Diagnostic (ICD-10-PCS; principal; 2022-12-06)
DX: T38.3X1A Poisoning by insulin and oral hypoglycemic [antidiabetic] drugs, accidental (unintentional), initial encounter (principal); G93.41 Metabolic encephalopathy; G93.5 Compression of brain; C34.90 Malignant neoplasm of unspecified part of unspecified bronchus or lung; C79.51 Secondary malignant neoplasm of bone; J91.0 Malignant pleural effusion; C79.31 Secondary malignant neoplasm of brain; D68.59 Other primary thrombophilia; J98.11 Atelectasis; I10 Essential (primary) hypertension; E11.649 Type 2 diabetes mellitus with hypoglycemia without coma; F32.A Depression, unspecified; K74.60 Unspecified cirrhosis of liver; D64.9 Anemia, unspecified; E78.5 Hyperlipidemia, unspecified; I25.10 Atherosclerotic heart disease of native coronary artery without angina pectoris; F41.9 Anxiety disorder, unspecified; Z79.4 Long term (current) use of insulin; E78.2 Mixed hyperlipidemia; I25.2 Old myocardial infarction; R29.6 Repeated falls; M54.50 Low back pain, unspecified; K59.00 Constipation, unspecified; E11.51 Type 2 diabetes mellitus with diabetic peripheral angiopathy without gangrene; Z96.642 Presence of left artificial hip joint; Z79.82 Long term (current) use of aspirin; Z79.899 Other long term (current) drug therapy; Z95.2 Presence of prosthetic heart valve; Z92.3 Personal history of irradiation; Z87.891 Personal history of nicotine dependence; G89.3 Neoplasm related pain (acute) (chronic)

== ENCOUNTER → 2022-12-04 | Outpatient (CLI) | payer MEDICARE ==
[~2022-12-04] MED LIST changes: +AMOX500T2 PO; +DEXA4TA PO; +DOCU100C16 PO; +IBUP-1114 PO; +IBUP1TAB5 PO; +INSU100I38 SC; +LACT10SO3 PO; +LACT20EL PO; +MORP-69 PO; +MORP15TA2 PO; +MORP1SOL SL; +MORP30TASA PO; +NARC1SPR NARES; +PROHANCE 279.3MG/ML 15ML VIAL As Ordered ONE; +PROHANCE 279.3MG/ML 5ML VIAL As Ordered ONE; +SENN8.6T28 PO; +SERT50TA29 PO
== END ==
LOC: M RAD 08:00
PROVIDERS: ATTEND General Practice
DX: C34.11 Malignant neoplasm of upper lobe, right bronchus or lung (principal); Z53.9 Procedure and treatment not carried out, unspecified reason

== ENCOUNTER → 2022-12-06 | Outpatient (CLI) | payer MEDICARE ==
[~2022-12-06] MED LIST changes: -AMOX500T2 PO; -DEXA4TA PO; -MORP1SOL SL; -PROHANCE 279.3MG/ML 15ML VIAL As Ordered ONE; -PROHANCE 279.3MG/ML 5ML VIAL As Ordered ONE
== END ==
LOC: M SOG 07:53
PROVIDERS: ATTEND Orthopaedic Surgery
DX: S72.002A Fracture of unspecified part of neck of left femur, initial encounter for closed fracture (principal); Z47.89 Encounter for other orthopedic aftercare; Z53.9 Procedure and treatment not carried out, unspecified reason

== ENCOUNTER 2022-12-12 11:32 | Outpatient (RCR) | payer MEDICARE ==
[~2022-12-12 11:32] MED LIST changes: +LIDOCAINE 1% MDV 20ML VIAL As Ordered ONE
[2022-12-13] MEDS ORDERED: AMOX500T2 PO (10:08)
[2022-12-14] MEDS ORDERED: IBUP1TAB5 PO (09:11)
[2022-12-20] MEDS ORDERED: MORP-69 PO (09:52)
[2022-12-21] MEDS ORDERED: DEXA4TA PO (08:56)
== END 2022-12-14 ==
LOC: M ONCR 11:32
PROVIDERS: ATTEND General Practice
DX: Z51.0 Encounter for antineoplastic radiation therapy (principal); C79.31 Secondary malignant neoplasm of brain; C34.11 Malignant neoplasm of upper lobe, right bronchus or lung; C79.51 Secondary malignant neoplasm of bone

== ENCOUNTER → 2022-12-15 | Outpatient (REF) | payer MEDICARE ==
[~2022-12-15] MED LIST changes: +AMOX500T2 PO; -LIDOCAINE 1% MDV 20ML VIAL As Ordered ONE
[2022-12-15 19:07] LABS: HEMATOCRIT 34.1 % (42.0-52.0); MEAN CORPUSCULAR HEMOGLOBIN 25.2 pg (27.0-33.0); MEAN CORPUSCULAR HGB CONC 29.3 g/dl (32.0-36.5); MEAN CORPUSCULAR VOLUME 85.9 fl (80.0-96.0); PLATELET COUNT, AUTOMATED 107 10^3/uL (150-450); RED BLOOD COUNT 3.97 10^6/uL (4.30-6.10); WHITE BLOOD COUNT 2.2 10^3/uL (4.0-10.0)
== END ==
LOC: M SHH 15:35
PROVIDERS: ATTEND Internal Medicine
DX: D61.818 Other pancytopenia (principal)

== ENCOUNTER → 2022-12-20 | Outpatient (CLI) | payer MEDICARE ==
[~2022-12-20] VITALS: Ht 175.3 cm; Wt 73.9 kg
[~2022-12-20] MED LIST changes: +DEXA4TA PO; +MORP1SOL SL
[2022-12-20 08:53] VITALS: BP 110/61; TEMP 96.4; O2SAT 98
== END ==
LOC: M PAL 08:23
PROVIDERS: ATTEND Nurse Practitioner Adult Health
DX: C34.91 Malignant neoplasm of unspecified part of right bronchus or lung (principal); C79.31 Secondary malignant neoplasm of brain; C79.51 Secondary malignant neoplasm of bone; J91.0 Malignant pleural effusion; K74.60 Unspecified cirrhosis of liver; R63.0 Anorexia; G89.3 Neoplasm related pain (acute) (chronic); R19.4 Change in bowel habit; R29.6 Repeated falls; Z51.5 Encounter for palliative care; Z79.1 Long term (current) use of non-steroidal anti-inflammatories (NSAID); Z79.891 Long term (current) use of opiate analgesic; Z79.811 Long term (current) use of aromatase inhibitors; Z79.82 Long term (current) use of aspirin; Z79.899 Other long term (current) drug therapy; Z92.3 Personal history of irradiation; Z97.8 Presence of other specified devices